=== PATIENT | female | born 1970 | race Caucasian/White ===

== ENCOUNTER 2017-02-05 00:31 | Inpatient (IN) | payer MEDICAID ==
[2017-02-05] VITALS (10 sets, daily range): BP systolic 108–147; BP diastolic 58–95; PULSE 64–89; RESP 16–20; Ht 157.5 cm; Wt 150.5 kg
[~2017-02-05] VITALS: Ht 157.5 cm; Wt 150.5 kg
[~2017-02-05 00:31] MED LIST: HYDR25TA6 PO; METO-429 PO
--- NOTE | 2017-02-05 01:00 | ERA ---
ER Documentation Chief Complaint Date/Time DATE: 02/05/17 TIME: 01:00 Chief Complaint shortness of breath x 1 day, also c/o swelling both legs HPI The patient is a 47-year-old female, presenting with acute shortness of breath today, her O2 saturation was only 87% on room air in triage. She also complains of bilateral leg edema for a week. She denies similar symptoms previously, denies chest pain, chest pain with exertion/vomiting/diaphoresis, abdominal pain, vomiting, dysuria, diarrhea, constipation She does not smoke nor drink Past medical history: Hypertension Past surgical history: None ROS All systems reviewed and are negative except as per history of present illness. Medications Home Meds Discontinued Reported Medications Hydrochlorothiazide* (Hydrochlorothiazide*) 25 Mg Tab, 25 MG PO DAILY, TAB 01/07/15 Metoprolol Tartrate* (Lopressor*) 50 Mg Tab, 50 MG PO DAILY, TAB 01/07/15 Allergies Allergies: Coded Allergies: No Known Allergy (Unverified , 02/05/17) PMhx/Soc Hx Cardiac Disorders: Yes (htn) Hx Alcohol Use: No Hx Substance Use: No Hx Tobacco Use: No Physical Exam Vitals Vital Signs Date Time Temp Pulse Resp B/P Pulse Ox O2 Delivery O2 Flow Rate FiO2 02/05/17 03:07 95 22 153/111 95 Nasal Cannula 2.0 02/05/17 01:30 97 23 150/135 94 Nasal Cannula 2.0 02/05/17 01:02 98.6 102 18 208/117 94 Nasal Cannula 02/05/17 01:00 Nasal Cannula 2.0 02/05/17 01:00 Nasal Cannula 2 02/05/17 00:35 98.7 102 20 190/127 85 Physical Exam Const: No acute distress.Obese Head: Atraumatic. Eyes: Normal Conjunctiva. ENT: Normal External Ears, Nose and Mouth. Neck: Full range of motion. No meningismus. Resp: Clear to auscultation bilaterally. Cardio: Regular rate and rhythm. Abd: Soft, non distended, normal bowel sounds, non tender. Skin: No petechiae or rashes. Back: No midline or flank tenderness. Ext: Bilateral leg edema, minimal calf tenderness Neur: Awake and alert. No focal deficit Psych: Normal Mood and Affect. Result Diagram: 02/05/17 0124 02/05/17 0124 Results 24 hrs Laboratory Tests Test 02/05/17 01:24 02/05/17 01:30 White Blood Count 10.410^3/ul Red Blood Count 4.8110^6/ul Hemoglobin 14.2g/dl Hematocrit 45.3% Mean Corpuscular Volume 94.2fl Mean Corpuscular Hemoglobin 29.5pg Mean Corpuscular Hemoglobin Concent 31.3g/dl Red Cell Distribution Width 14.2% Platelet Count 39774^3/UL Mean Platelet Volume 10.4fl Neutrophils % 63.7% Lymphocytes % 24.2% Monocytes % 6.6% Eosinophils % 4.3% Basophils % 0.7% Nucleated Red Blood Cells % 0.0/100WBC Neutrophils # 6.610^3/ul Lymphocytes # 2.510^3/ul Monocytes # 0.710^3/ul Eosinophils # 0.510^3/ul Basophils # 0.110^3/ul Nucleated Red Blood Cells # 0.010^3/ul Prothrombin Time 12.5Sec Prothrombin Time Ratio 1.0 INR International Normalized Ratio 0.93 Activated Partial Thromboplast Time 27.8Sec D-Dimer 593.30ng/ml D-Dimer Comment Sodium Level 138mmol/L Potassium Level 4.0mmol/L Chloride Level 97mmol/L Carbon Dioxide Level 36mmol/L Anion Gap 9 Blood Urea Nitrogen 20mg/dl Creatinine 0.83mg/dl Glucose Level 132mg/dl Calcium Level 8.8mg/dl Troponin I 0.047ng/ml B-Type Natriuretic Peptide 1930PG/ML Serum HCG, Qualitative NEGATIVE Blood Gas Specimen Source Blood arterial Arterial Blood Date Drawn 02/05/2017 1:45:03 AM Arterial Blood pH (Temp corrected) 7.364 Arterial Blood pCO2 (Temp correct) 62.9mmhg Arterial Blood pO2 (Temp corrected) 60.5mmHG Arterial Blood HCO3 35.1mmol/L Arterial Blood Base Excess 7.3mmol/L Arterial Blood Oxygen Saturation 90.3mmHG Jason Test ACCEPTAB Arterial Blood Gas Puncture Site Right Radial Arterial Blood Carboxyhemoglobin 0.7% Arterial Blood Methemoglobin 0.3% Blood Gas A-a O2 Differential 57.6mmHg Oxyhemoglobin Percent 89.4% Total Hemoglobin 15.0g/dl Blood Gas Temperature 37.0C Blood Gas Actual Respiration Rate 26 Blood Gas Modality NASAL CANNULA FiO2 27.0% Blood Gas Notified Whom MH Blood Gas Notified Time 02/05/2017 1:57:54 AM Current Medications Medications (Trade) Dose Ordered Sig/Lawanda Route PRN Reason Start Time Stop Time Status Last Admin Dose Admin Furosemide (Lasix) 40 mg ONCE ONCE IV 02/05/17 02:30 02/05/17 02:31 DC 02/05/17 02:40 Procedures/MDM CTA of chest is pending [place] [id number] Radiology Main Line: [phone] DIAGNOSTIC IMAGING REPORT Patient: LISA RENO : 1970 Age: 47 Sex: F MR #: [id number] DOS: 02/05/17 0100 Ordering MD: JOSUÉ LUA MD Location: E/R Room/Bed: PROCEDURE: US bilateral lower extremity venous Doppler CLINICAL INDICATION: Bilateral swelling TECHNIQUE: Multiple sonographic images of the bilateral lower extremity deep venous system was obtained utilizing grayscale, color-flow, compressive sonography and Doppler imaging with augmentation. COMPARISON: There are no similar studies submitted for comparison. FINDINGS: There is normal compressibility and flow within the left common femoral, superficial femoral, popliteal, and calf veins. There is normal compressibility and flow within the right common femoral, superficial femoral, popliteal, and calf veins. IMPRESSION: No evidence of DVT within the lower extremities. RPTAT: HIKT .Felice Raya MD, MD Date Time Electronically viewed and signed by .Felice Raya MD, MD on 02/05/2017 01:43 .T/ CC: JOSUÉ LUA MD [place] [address] Radiology Main Line: [phone] DIAGNOSTIC IMAGING REPORT Patient: LISA RENO : 1970 Age: 47 Sex: F MR #: [id number] DOS: 02/05/17 0100 Ordering MD: JOSUÉ LUA MD Location: E/R Room/Bed: PROCEDURE: XR Chest. CLINICAL INDICATION: Shortness of breath. TECHNIQUE: Single frontal chest x-ray. COMPARISON: None. FINDINGS: Heart is enlarged.. There is moderate CHF. There is no pleural effusion. There is no pneumothorax. The osseous structures are unremarkable. IMPRESSION: Cardiomegaly. CHF. RPTAT: HMVK .Josué Montana MD, MD Date Time Electronically viewed and signed by .Josué Montana MD, MD on 02/05/2017 02:04 .K/ CC: JOSUÉ LUA MD EKG: Read by emergency physician Rate/Rhythm: Normal Sinus Rhythm 94 beats/min QRS, ST, T-waves: No ST elevation, no T inversion, PVC, LAFB, LVH Impression: Abnormal EKG ABG 27%, pH 7.36, PCO2 62, PO2 60 MEDICAL MAKING DECISION: The patient is a 47-year-old female, presenting with acute respiratory failure due to acute CHF, acute accelerated hypertension. She was treated with Lasix 40 mg IV with good response The differential diagnoses considered include but are not limited to asthma, COPD, pneumonia, pulmonary embolus, pleural effusion, congestive heart failure. Critical Care: Time: 35 minutes excluding all billable procedures. Treatments/Evaluations: Close monitoring and treatment of unstable vital signs, cardiorespiratory, and neurologic status, while maintaining tight balance of fluid, respiratory, and cardiac interventions. Departure Diagnosis: Primary Impression: Acute respiratory failure Additional Impressions: CHF (congestive heart failure) Accelerated hypertension Condition: Critical Comments I discussed the findings with the patient. I discussed the patient with The on- call hospitalist Dr. Zarco at 3 AM who was made aware of the lab, the treatment, the patient condition, pending CTA of the chest. The patient is admitted to JOSUÉ Paz MD Feb 05, 2017 01:00
--- NOTE | 2017-02-05 01:43 | RADRPT ---
PROCEDURE: US bilateral lower extremity venous Doppler CLINICAL INDICATION: Bilateral swelling TECHNIQUE: Multiple sonographic images of the bilateral lower extremity deep venous system was obt ained utilizing grayscale, color-flow, compressive sonography and Doppler imaging with augmentation. COMPARISON: There are no similar studies submitted for comparison. FINDINGS: There is normal compressibility and flow within the left common femoral, superficial femoral, poplit eal, and calf veins. There is normal compressibility and flow within the right common femoral, superficial femoral, popli teal, and calf veins. IMPRESSION: No evidence of DVT within the lower extremities. RPTAT: HIKT .Felice Raya MD, MD Date Time Electronically viewed and signed by .Felice Raya MD, MD on 02/05/2017 01:43 .T/
[2017-02-05 01:58] LABS: AADO2 Arterial 57.6 mmHg (7.0-24.0); Allen Test ACCEPTAB; Arterial Base Excess 7.3 mmol/L (-3.0-3); Arterial COHb 0.7 % (0.0-3.0); Arterial Fraction of Oxyhgb 89.4 % (93.0-99.0); Arterial HCO3 35.1 mmol/L (22.0-26.0); Arterial MetHb 0.3 % (0.0-1.5); MODE NASAL CANNULA
[2017-02-05 02:04] LABS: BASOPHIL # 0.1 10^3/ul (0.0-0.1); BASOPHILS % 0.7 % (0.0-2.0); EOSINOPHILS # 0.5 10^3/ul (0.0-0.5); EOSINOPHILS % 4.3 % (0.0-7.0); HEMATOCRIT 45.3 % (37.0-47.0); HEMOGLOBIN 14.2 g/dl (12.0-16.0); LYMPHOCYTES # 2.5 10^3/ul (0.8-2.9); LYMPHOCYTES % 24.2 % (15.0-51.0); MEAN CORPUSCULAR HEMOGLOBIN 29.5 pg (29.0-33.0); MEAN CORPUSCULAR HGB CONC 31.3 g/dl (32.0-37.0); MEAN CORPUSCULAR VOLUME 94.2 fl (82.0-101.0); MEAN PLATELET VOLUME 10.4 fl (7.4-10.4); MONOCYTE # 0.7 10^3/ul (0.3-0.9); MONOCYTES % 6.6 % (0.0-11.0); NEUTROPHIL # 6.6 10^3/ul (1.6-7.5); NEUTROPHILS % 63.7 % (39.0-77.0); PLATELET COUNT 276 10^3/UL (140-415); RED BLOOD COUNT 4.81 10^6/ul (4.20-5.40); RED CELL DISTRIBUTION WIDTH 14.2 % (11.5-14.5); WHITE BLOOD COUNT 10.4 10^3/ul (4.8-10.8)
--- NOTE | 2017-02-05 02:04 | RADRPT ---
PROCEDURE: XR Chest. CLINICAL INDICATION: Shortness of breath. TECHNIQUE: Single frontal chest x-ray. COMPARISON: None. FINDINGS: Heart is enlarged.. There is moderate CHF. There is no pleural effusion. There is no pneumothorax . The osseous structures are unremarkable. IMPRESSION: Cardiomegaly. CHF. RPTAT: HMVK .Josué Montana MD, MD Date Time Electronically viewed and signed by .Josué Montana MD, on 02/05/2017 02:04 .K/
[2017-02-05 02:20] LABS: INR 0.93; PROTIME 12.5 Sec (12.2-14.2)
[2017-02-05 02:21] LABS: PARTIAL THROMBOPLASTIN TIME 27.8 Sec (25.0-35.0)
[2017-02-05 02:22] LABS: CALCIUM 8.8 mg/dl (8.4-10.2); CREATININE 0.83 mg/dl (0.44-1.00)
[2017-02-05 02:30] LABS: D-DIMER 593.3 ng/ml (<460)
[2017-02-05] MEDS ORDERED: FUROSEMIDE 40 MG INJ IV ONE (02:30)
[2017-02-05 02:34] LABS: TROPONIN-I 0.047 ng/ml (0.00-0.12)
[2017-02-05] MEDS ORDERED: SOD CHLORIDE 0.9% 100 ML ONE (03:11)
[2017-02-05] MEDS ORDERED: IOHEXOL 100 ML ONE (03:11)
--- NOTE | 2017-02-05 03:43 | RADRPT ---
PROCEDURE: CTA Chest CLINICAL INDICATION: Shortness of breath TECHNIQUE: Thin section spiral CT images were obtained through the vasculature of the chest during administration of 90 cc of Omnipaque 350 contrast material. Multiplanar reconstructions and 3-D ma ximum intensity projection reconstructed images were performed. The images were reviewed on a PACS workstation. The total exam CTDI equals 24.34 mGy, and the total exam DLP equals 964.27 mGy-cm. O ne or more of the following dose reduction techniques were used: automated exposure control, adjustm ent of the mA and/or kV according to patient size, or use of iterative reconstruction technique. COMPARISON: Chest x-ray from the same day FINDINGS: Calcified right upper lobe granuloma. Tiny calcified left upper lobe granuloma. Scattered nonspecifi c ground-glass opacities of the lung lakhani. Dependent atelectasis of the lungs is seen. No focal in filtrate or pleural effusion is seen. No pericardial effusion is seen. No hilar or mediastinal varinder opathy is seen. There is no definite evidence for pulmonary embolus or aortic dissection. Cardiome alexandrea. Small probable left adrenal adenoma. There is mild degenerative change of the spine. IMPRESSION: No evidence for pulmonary embolus or aortic dissection. No definite acute disease. . Prior granulom atous disease. RPTAT: HLBE Physician Anna Date Time Electronically viewed and signed by Physician Anna on 02/05/2017 03:43 JULIA/
[2017-02-05] MEDS ORDERED: NITROGLYCERIN (SL) 0.4 MG TAB SL PRN (04:00)
[2017-02-05] MEDS ORDERED: ONDANSETRON 4 MG INJ IV PRN (04:00)
[2017-02-05] MEDS ORDERED: NACL 0.9% 3 ML SYG IV SCH (04:00)
[2017-02-05] MEDS ORDERED: ACETAMINOPHEN 325 MG TAB PO PRN (04:00)
--- NOTE | 2017-02-05 06:34 | HP ---
Date/Time of Note Date/Time of Note DATE: 02/05/17 TIME: 06:22 Assessment/Plan VTE Prophylaxis VTE Prophylaxis Intervention: LMWH Lines/Catheters Urinary Cath still in place: No Assessment/Plan Chief Complaint/Hosp Course This is a 47-year-old female being admitted to the telemetry floor for: #1 Shortness of breath: Likely new onset CHF. there likely also is a component of obesity hypoventilation syndrome and/or obstructive sleep apnea. BNP is elevated in the 1900. CT of the chest was negative for PE and ultrasound of lower extremities was negative for DVT. At the current time we will continue Lasix 40 mg IV twice daily. Will start MARIA FERNANDA inhibitor. Will order echocardiogram to evaluate the heart morphology. Will consult cardiology. Will initiate beta-rachel once she is appropriately compensated. Will check a lipid panel. #2 hypertension: Currently patient is not on any medications, will continue monitor blood pressure. #3 morbid obesity: We will check a lipid panel, A1c, TSH #4 lower abdominal hernia: At the current time we will continue to follow this, patient likely need surgery in the future #5 DVT and GI prophylaxis: Lovenox, acid rachel Further treatment strategy will be implemented as per the clinical course Problems: HPI/ROS Admit Date/Time Admit Date/Time Feb 05, 2017 at 03:46 Hx of Present Illness Chief complaint: Shortness of breath The patient is a 47-year-old female, presenting with acute shortness of breath today, her O2 saturation was only 87% on room air in triage. She also complains of bilateral leg edema for a week. She denies similar symptoms previously, denies chest pain, chest pain with exertion/vomiting/diaphoresis, abdominal pain, vomiting, dysuria, diarrhea, constipation . Allergies: NKDA Medications: See JUL ARASH Const: As per HPI Eyes : No pain discharge or redness or change in visual acuity ENT: No pain, sore throat, congestion, congestion, dysphagia or discharge Respiratory: As per HPI Cardiovascular: As per HPI GI : no change in appetite, abdominal pain, nausea, vomiting, diarrhea, constipation, or change in the color his stool Genitourinary: No dysuria, hematuria, flank pain , discharge or CVA tenderness Musculoskeletal: No joint pain, back pain, neck pain, restricted range of motion in neck or joints Skin: No rash, bruising or hives Neuro: No headache, dizziness, syncope, seizure, focal weakness Endocrine: No polyuria, polydipsia, temperature intolerance Psych: No hallucination, depression, anxiety or suicidal ideation PMH/Family/Social Past Medical History Hypertension, lower abdominal hernia Past Surgical History Appendectomy, 1 Family History Significant Family History: no pertinent family hx Social History Alcohol Use: none Smoking Status: Never smoker Drug Use: none Exam/Review of Systems Vital Signs Vitals Vital Signs Date Time Temp Pulse Resp B/P Pulse Ox O2 Delivery O2 Flow Rate FiO2 02/05/17 04:46 83 02/05/17 04:35 97.7 19 140/86 90 02/05/17 04:30 Nasal Cannula 2.0 Exam Exam General: This is a morbidly obese female lying in bed and needing to catch her breath during conversation HEENT: Atraumatic, normocephalic. The pupils are equal, round and reactive. Extraocular motor are intact Neck: Supple with full range of motion. No rigidity or meningismus Chest: Nontender Lungs: Clear to auscultation bilaterally no crackles rales or wheezing Heart: Normal S1-S2, Regular rhythm and rate. No murmur, S3, or S4 Abdomen: Soft , nontender, nondistended , bowel sounds are present. No guarding no rebound tenderness , No masses or organomegaly. No costovertebral temporal angle mass Extremities: Normal to inspection, no edema no cyanosis Neurologic: Normal mental status, speech normal, cranial nerves II through XII are intact, motor and sensory are intact, no focal weakness Additional Comments PROCEDURE: CTA Chest CLINICAL INDICATION: Shortness of breath TECHNIQUE: Thin section spiral CT images were obtained through the vasculature of the chest during administration of 90 cc of Omnipaque 350 contrast material. Multiplanar reconstructions and 3-D maximum intensity projection reconstructed images were performed. The images were reviewed on a PACS workstation. The total exam CTDI equals 24.34 mGy, and the total exam DLP equals 964.27 mGy-cm. One or more of the following dose reduction techniques were used: automated exposure control, adjustment of the mA and/or kV according to patient size, or use of iterative reconstruction technique. COMPARISON: Chest x-ray from the same day FINDINGS: Calcified right upper lobe granuloma. Tiny calcified left upper lobe granuloma. Scattered nonspecific ground-glass opacities of the lung lakhani. Dependent atelectasis of the lungs is seen. No focal infiltrate or pleural effusion is seen. No pericardial effusion is seen. No hilar or mediastinal adenopathy is seen. There is no definite evidence for pulmonary embolus or aortic dissection. Cardiomegaly. Small probable left adrenal adenoma. There is mild degenerative change of the spine. IMPRESSION: No evidence for pulmonary embolus or aortic dissection. No definite acute disease. . Prior granulomatous disease. RPTAT: HLBE Daylin Rivera Physician Date Time Electronically viewed and signed by Daylin Rivera, Physician on 02/05/2017 03 :43 LE/ CC: JOSUÉ LUA MD PROCEDURE: XR Chest. CLINICAL INDICATION: Shortness of breath. TECHNIQUE: Single frontal chest x-ray. COMPARISON: None. FINDINGS: Heart is enlarged.. There is moderate CHF. There is no pleural effusion. There is no pneumothorax. The osseous structures are unremarkable. IMPRESSION: Cardiomegaly. CHF. RPTAT: HMVK .Josué Montana MD, Date Time Electronically viewed and signed by .Josué Montana MD, on 02/05/2017 02:04 .K/ CC: JOSUÉ LUA MD PROCEDURE: US bilateral lower extremity venous Doppler CLINICAL INDICATION: Bilateral swelling TECHNIQUE: Multiple sonographic images of the bilateral lower extremity deep venous system was obtained utilizing grayscale, color-flow, compressive sonography and Doppler imaging with augmentation. COMPARISON: There are no similar studies submitted for comparison. FINDINGS: There is normal compressibility and flow within the left common femoral, superficial femoral, popliteal, and calf veins. There is normal compressibility and flow within the right common femoral, superficial femoral, popliteal, and calf veins. IMPRESSION: No evidence of DVT within the lower extremities. RPTAT: HIKT .Felice Raya MD, MD Date Time Electronically viewed and signed by .Felice Raya MD, MD on 02/05/2017 01:43 .T/ CC: JOSUÉ LUA MD EKG: Rate/Rhythm: Normal Sinus Rhythm 94 beats/min QRS, ST, T-waves: No ST elevation, no T inversion, PVC, LAFB, LVH As per ED physician documentation Labs Result Diagram: 02/05/1712302/05/17 0124 Medications Medications Current Medications Ondansetron HCl (Zofran Inj) 4 mg Q6H PRN IV NAUSEA AND/OR VOMITING; Start at 04:00 Aspirin (Aspirin) 81 mg DAILY PO ; Start 02/05/17 at 09:00 Furosemide (Lasix) 40 mg BID IV ; Start 02/05/17 at 09:00 Nitroglycerin (Nitroglycerin (Sl Tab) 0.4 Mg) 1 tab Q5M PRN SL CHEST PAIN; Start 02/05/17 at 04:00 Acetaminophen (Tylenol Tab) 650 mg Q6H PRN PO PAIN LEVEL 1-3 OR FEVER; Start at 04:00 Famotidine (Pepcid) 20 mg Q12 PO ; Start 02/05/17 at 09:00 Enoxaparin Sodium (Lovenox) 40 mg DAILY SC ; Start 02/05/17 at 09:00 Influenza Virus Vaccine (Fluzone) 0.5 ml ONCE ONCE IM* ; Start 02/06/17 at 09:00 ; Stop 02/06/17 at 09:01 JENISE JENKINS Feb 05, 2017 06:33
[2017-02-05] MEDS ORDERED: LISINOPRIL 10 MG TAB PO ONE (07:00)
[2017-02-05 07:08] LABS: CK-MB 1.27 ng/ml (0.0-2.4); TROPONIN-I 0.042 ng/ml (0.00-0.12)
[2017-02-05 07:56] LABS: CHOL/HDL RATIO 2.6 RATIO; MAGNESIUM 1.8 mg/dl (1.7-2.5)
[2017-02-05 08:18] LABS: THYROID STIMULATING HORMONE 2.44 MIU/L (0.465-4.680)
[2017-02-05] MEDS: ASPIRIN 81 MG TAB PO SCH (08:47)
[2017-02-05] MEDS: FAMOTIDINE 20 MG TAB PO SCH ×2 (08:48→20:51)
[2017-02-05] MEDS ORDERED: FUROSEMIDE 40 MG INJ IV SCH (09:00)
[2017-02-05] MEDS: ENOXAPARIN 40 MG/0.4 ML SYG SC SCH (09:01)
[2017-02-05 11:04] LABS: CK-MB 1.2 ng/ml (0.0-2.4); TROPONIN-I 0.028 ng/ml (0.00-0.12)
--- NOTE | 2017-02-05 15:23 | PN ---
Date/Time of Note Date/Time of Note DATE: 02/05/17 TIME: 15:20 Assessment/Plan VTE Prophylaxis VTE Prophylaxis Intervention: LMWH Lines/Catheters Urinary Cath still in place: No Assessment/Plan Chief Complaint/Hosp Course 47 yo female with morbid obesity who presents with new diagnosis of CHF as well as DM and chronic hypercapneic respiratory failure Acute systolic CHF exacerbation: - Contiue lasix to euvolemia, though quite difficult to assess volume status given habiuts - Started on lisinopril and Coreg Hypertension: - Monitor with Coreg, lasix, and MARIA FERNANDA Chronicn hypercapneic respiratory failure: - Likely OHS/PRABHA - Needs pulmonary evaluation/sleep study, can be done as outpatient DMII: - basal/bolus insulin - Metformin at discharge Morbid obesity: - Very much needs to lose weight, discussed at [facility] - [facility] consult - Bariatric surgery would be excellent for her Dispo in coming days Problems: Subjective 24 Hr Interval Summary Free Text/Dictation Patient diuresing well Feeling a bit better, still with orthopnea Discussed CHF diagnosis at length Exam/Review of Systems Vital Signs Vitals Vital Signs Date Time Temp Pulse Resp B/P Pulse Ox O2 Delivery O2 Flow Rate FiO2 02/05/17 12:25 89 02/05/17 11:37 98.2 19 126/85 96 02/05/17 08:00 Nasal Cannula 2.0 Exam Morbidly obese Resting comfortably in NAD Difficult to assess JVP given neck RRR Clear lungs, nonlabored b/l pedal edema Results Result Diagram: 02/05/17 0124 02/05/17 0124 Results 24 hrs Laboratory Tests Test 02/05/17 01:24 02/05/17 01:30 02/05/17 05:52 02/05/17 05:57 White Blood Count 10.4 Red Blood Count 4.81 Hemoglobin 14.2 Hematocrit 45.3 Mean Corpuscular Volume 94.2 Mean Corpuscular Hemoglobin 29.5 Mean Corpuscular Hemoglobin Concent 31.3 L Red Cell Distribution Width 14.2 Platelet Count 276 Mean Platelet Volume 10.4 # Neutrophils % 63.7 Lymphocytes % 24.2 Monocytes % 6.6 Eosinophils % 4.3 Basophils % 0.7 Nucleated Red Blood Cells % 0.0 Neutrophils # 6.6 Lymphocytes # 2.5 Monocytes # 0.7 Eosinophils # 0.5 Basophils # 0.1 Nucleated Red Blood Cells # 0.0 Prothrombin Time 12.5 Prothrombin Time Ratio 1.0 INR International Normalized Ratio 0.93 Activated Partial Thromboplast Time 27.8 D-Dimer 593.30 H D-Dimer Comment Sodium Level 138 Potassium Level 4.0 Chloride Level 97 Carbon Dioxide Level 36 H Anion Gap 9 Blood Urea Nitrogen 20 Creatinine 0.83 Glucose Level 132 Calcium Level 8.8 Troponin I 0.047 0.042 B-Type Natriuretic Peptide 1930 H Serum HCG, Qualitative NEGATIVE Blood Gas Specimen Source Blood arterial Arterial Blood Date Drawn 02/05/2017 1:45:03 AM Arterial Blood pH (Temp corrected) 7.364 Arterial Blood pCO2 (Temp correct) 62.9 H Arterial Blood pO2 (Temp corrected) 60.5 L Arterial Blood HCO3 35.1 H Arterial Blood Base Excess 7.3 H Arterial Blood Oxygen Saturation 90.3 L Jason Test ACCEPTAB Arterial Blood Gas Puncture Site Right Radial Arterial Blood Carboxyhemoglobin 0.7 Arterial Blood Methemoglobin 0.3 Blood Gas A-a O2 Differential 57.6 H Oxyhemoglobin Percent 89.4 L Total Hemoglobin 15.0 Blood Gas Temperature 37.0 Blood Gas Actual Respiration Rate 26 Blood Gas Modality NASAL CANNULA FiO2 27.0 Blood Gas Notified Whom MH Blood Gas Notified Time 02/05/2017 1:57:54 AM Creatine Kinase 56 Creatine Kinase Index 2.3 Creatinine Kinase MB (Mass) 1.27 Hemoglobin A1c 6.9 H Magnesium Level 1.8 Triglycerides Level 69 Cholesterol Level 130 LDL Cholesterol, Calculated 66 HDL Cholesterol 50 Cholesterol/HDL Ratio 2.6 Thyroid Stimulating Hormone (TSH) 2.440 Test 02/05/17 09:39 Creatine Kinase 51 Creatine Kinase Index 2.4 Creatinine Kinase MB (Mass) 1.20 Troponin I 0.028 Medications Medications Current Medications Ondansetron HCl (Zofran Inj) 4 mg Q6H PRN IV NAUSEA AND/OR VOMITING; Start at 04:00 Aspirin (Aspirin) 81 mg DAILY PO Last administered on 02/05/17 08:47; Admin Dose 81 MG; Start 02/05/17 at 09:00 Furosemide (Lasix) 40 mg BID IV Last administered on 02/05/17 08:48; Admin Dose 40 MG; Start 02/05/17 at 09:00 Nitroglycerin (Nitroglycerin (Sl Tab) 0.4 Mg) 1 tab Q5M PRN SL CHEST PAIN; Start 02/05/17 at 04:00 Acetaminophen (Tylenol Tab) 650 mg Q6H PRN PO PAIN LEVEL 1-3 OR FEVER; Start at 04:00 Famotidine (Pepcid) 20 mg Q12 PO Last administered on 02/05/17 08:48; Admin Dose 20 MG; Start 02/05/17 at 09:00 Enoxaparin Sodium (Lovenox) 40 mg DAILY SC Last administered on 02/05/17 09:01 ; Admin Dose 40 MG; Start 02/05/17 at 09:00 Influenza Virus Vaccine (Fluzone) 0.5 ml ONCE ONCE IM* ; Start 02/06/17 at 09:00 ; Stop 02/06/17 at 09:01 Carvedilol (Coreg) 3.125 mg BID PO Last administered on 02/05/17 12:20; Admin Dose 3.125 MG; Start 02/05/17 at 10:30 MIHIR COON MD Feb 05, 2017 15:23
[2017-02-05] MEDS ORDERED: GLUCAGON 1 MG INJ IM PRN (15:30)
[2017-02-05] MEDS ORDERED: GLUCOSE GEL 15 GRAM TUBE PO PRN ×2 (15:30)
[2017-02-05] MEDS ORDERED: DEXTROSE 50% 50 ML SYRINGE IV PRN ×2 (15:30)
[2017-02-05] MEDS ORDERED: GLUCOSE GEL 15 GRAM TUBE BUCCAL PRN (15:30)
[2017-02-05] MEDS: INSULIN ASPART [NOVOLOG] 3 ML PEN SC SCH ×2 (17:55→21:00)
[2017-02-05 18:21] LABS: CALCIUM 8.2 mg/dl (8.4-10.2); CREATININE 0.95 mg/dl (0.44-1.00); POTASSIUM 3.4 mmol/L (3.5-5.1)
[2017-02-05] MEDS: FUROSEMIDE 20 MG INJ IV SCH (20:52)
[2017-02-05] MEDS: INSULIN GLARGINE [LANtus] 3 ML PEN SC SCH (20:55)
[2017-02-06] VITALS (15 sets, daily range): BP systolic 114–134; BP diastolic 57–83; PULSE 40–88; RESP 18
[2017-02-06] MEDS: ACCU-CHEK XX SCH (02:00)
[2017-02-06] MEDS: ASPIRIN 81 MG TAB PO SCH (08:23)
[2017-02-06] MEDS: FUROSEMIDE 20 MG INJ IV SCH (08:25)
[2017-02-06] MEDS: FAMOTIDINE 20 MG TAB PO SCH ×2 (08:27→20:55)
[2017-02-06 08:31] LABS: BASOPHIL # 0.1 10^3/ul (0.0-0.1); BASOPHILS % 0.8 % (0.0-2.0); EOSINOPHILS # 0.3 10^3/ul (0.0-0.5); EOSINOPHILS % 3.8 % (0.0-7.0); HEMATOCRIT 46.3 % (37.0-47.0); HEMOGLOBIN 14.5 g/dl (12.0-16.0); LYMPHOCYTES # 1.7 10^3/ul (0.8-2.9); LYMPHOCYTES % 19.5 % (15.0-51.0); MEAN CORPUSCULAR HEMOGLOBIN 29.8 pg (29.0-33.0); MEAN CORPUSCULAR HGB CONC 31.3 g/dl (32.0-37.0); MEAN CORPUSCULAR VOLUME 95.3 fl (82.0-101.0); MEAN PLATELET VOLUME 9.7 fl (7.4-10.4); MONOCYTE # 0.6 10^3/ul (0.3-0.9); MONOCYTES % 7.1 % (0.0-11.0); NEUTROPHIL # 5.9 10^3/ul (1.6-7.5); NEUTROPHILS % 68.3 % (39.0-77.0); PLATELET COUNT 259 10^3/UL (140-415); RED BLOOD COUNT 4.86 10^6/ul (4.20-5.40); RED CELL DISTRIBUTION WIDTH 14.1 % (11.5-14.5); WHITE BLOOD COUNT 8.7 10^3/ul (4.8-10.8)
[2017-02-06] MEDS: INSULIN ASPART [NOVOLOG] 3 ML PEN SC SCH ×4 (08:35→20:55)
[2017-02-06] MEDS: ENOXAPARIN 40 MG/0.4 ML SYG SC SCH (08:35)
[2017-02-06 08:44] LABS: ALBUMIN 3.8 g/dl (3.3-4.9); ALBUMIN/GLOBULIN RATIO 1.02; BILIRUBIN,INDIRECT 0.8 mg/dl (0-1.1); BILIRUBIN,TOTAL 0.8 mg/dl (0.2-1.3); CALCIUM 8.4 mg/dl (8.4-10.2); POTASSIUM 3.3 mmol/L (3.5-5.1); TOTAL PROTEIN 7.5 g/dl (6.1-8.1)
[2017-02-06] MEDS ORDERED: INFLUENZA VIRUS VACCINE 0.5 ML SYG IM* ONE (09:00)
[2017-02-06] MEDS ORDERED: POTASSIUM CHLORIDE (SR) 20 MEQ TAB PO STA (09:29)
--- NOTE | 2017-02-06 11:48 | RADRPT ---
PROCEDURE: XR Chest. CLINICAL INDICATION: Congestive heart failure. TECHNIQUE: Single frontal view. COMPARISON: 02/05/2017. FINDINGS: Mild pulmonary edema is improved. The lungs are otherwise clear. The heart is enlarged. There is no pleural effusion. There is no pneumothorax. IMPRESSION: 1. Pulmonary edema, improved. 2. Cardiomegaly. RPTAT: QQ .Gonzalez Novak MD, MD Date Time Electronically viewed and signed by .Gonzalez Novak MD, MD on 02/06/2017 11:48 .R/
--- NOTE | 2017-02-06 14:53 | PN ---
Date/Time of Note Date/Time of Note DATE: 02/06/17 TIME: 14:39 Assessment/Plan VTE Prophylaxis VTE Prophylaxis Intervention: LMWH Lines/Catheters IV Catheter Type (from Nrs): Saline Lock Urinary Cath still in place: No Assessment/Plan Chief Complaint/Hosp Course 47 yo female with morbid obesity who presents with new diagnosis of CHF as well as DM and chronic hypercapneic respiratory failure Chronic hypercapneic respiratory failure: - Likely OHS/PRABHA - Needs pulmonary evaluation/sleep study, can be done as outpatient - Hold on further lasix Acute systolic CHF exacerbation: - Need to hold off on further diuresis given worsening metabolic alkalosis/ hypercapnea - Not clear to me how much volume left given habitus but not grossly overloaded Hypertension: - Monitor with Coreg, lasix, and MARIA FERNANDA DMII: - basal/bolus insulin - Metformin at discharge Morbid obesity: - Very much needs to lose weight, discussed at [facility] - 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 - Bariatric surgery would be excellent for her Dispo in coming days Problems: Subjective 24 Hr Interval Summary Free Text/Dictation Says her breathing is back to baseline, much better than when she came That said, still hypoxic on RA to mid 80s Bicarb now > 40 Exam/Review of Systems Vital Signs Vitals Vital Signs Date Time Temp Pulse Resp B/P Pulse Ox O2 Delivery O2 Flow Rate FiO2 02/06/17 12:24 98.0 87 18 116/57 98 02/06/17 12:11 Room Air 02/05/17 20:00 2.0 Intake and Output 02/05/17 02/05/17 02/06/17 15:00 23:00 07:00 Intake Total 700 ml Output Total 1200 ml Balance -500 ml Exam Morbidly obese Slightly tacypnniec Difficult to assess JVP but not clearly distended Lungs clear RRR Trace pedal edema Results Result Diagram: 02/06/17 0648 02/06/17 0648 Results 24 hrs Laboratory Tests Test 02/05/17 16:51 02/05/17 17:15 02/05/17 20:25 02/06/17 06:48 Bedside Glucose 109 129 Sodium Level 139 142 Potassium Level 3.4 L 3.3 L Chloride Level 94 L 94 L Carbon Dioxide Level 39 H 41 *H Anion Gap 9 10 Blood Urea Nitrogen 20 21 H Creatinine 0.95 1.00 Glucose Level 112 118 Calcium Level 8.2 L 8.4 White Blood Count 8.7 Red Blood Count 4.86 Hemoglobin 14.5 Hematocrit 46.3 Mean Corpuscular Volume 95.3 Mean Corpuscular Hemoglobin 29.8 Mean Corpuscular Hemoglobin Concent 31.3 L Red Cell Distribution Width 14.1 Platelet Count 259 Mean Platelet Volume 9.7 Neutrophils % 68.3 Lymphocytes % 19.5 Monocytes % 7.1 Eosinophils % 3.8 Basophils % 0.8 Nucleated Red Blood Cells % 0.0 Neutrophils # 5.9 Lymphocytes # 1.7 Monocytes # 0.6 Eosinophils # 0.3 Basophils # 0.1 Nucleated Red Blood Cells # 0.0 Total Bilirubin 0.8 Direct Bilirubin 0.00 Indirect Bilirubin 0.8 Aspartate Amino Transf (AST/SGOT) 41 Alanine Aminotransferase (ALT/SGPT) 64 Alkaline Phosphatase 102 Total Protein 7.5 Albumin 3.8 Globulin 3.70 H Albumin/Globulin Ratio 1.02 Test 02/06/17 08:20 02/06/17 12:02 Bedside Glucose 163 92 Medications Medications Current Medications Ondansetron HCl (Zofran Inj) 4 mg Q6H PRN IV NAUSEA AND/OR VOMITING; Start at 04:00 Aspirin (Aspirin) 81 mg DAILY PO Last administered on 02/06/17 08:23; Admin Dose 81 MG; Start 02/05/17 at 09:00 Nitroglycerin (Nitroglycerin (Sl Tab) 0.4 Mg) 1 tab Q5M PRN SL CHEST PAIN; Start 02/05/17 at 04:00 Acetaminophen (Tylenol Tab) 650 mg Q6H PRN PO PAIN LEVEL 1-3 OR FEVER; Start at 04:00 Famotidine (Pepcid) 20 mg Q12 PO Last administered on 02/06/17 08:27; Admin Dose 20 MG; Start 02/05/17 at 09:00 Enoxaparin Sodium (Lovenox) 40 mg DAILY SC Last administered on 02/06/17 08:35 ; Admin Dose 40 MG; Start 02/05/17 at 09:00 Carvedilol (Coreg) 3.125 mg BID PO Last administered on 02/06/17 08:24; Admin Dose 3.125 MG; Start 02/05/17 at 10:30 Diagnostic Test (Pha) (Accu-Chek) 1 ea 02 XX ; Start 02/06/17 at 02:00 Insulin Glargine (Lantus) 10 unit QPM SC Last administered on 02/05/17t 20:55; Admin Dose 10 UNIT; Start 02/05/17 at 21:00 Miscellaneous Information 1 ea NOTE XX ; Start 02/05/17 at 15:30 Glucose (Glutose) 15 gm Q15M PRN PO DECREASED GLUCOSE; Start 02/05/17 at 15:30 Glucose (Glutose) 22.5 gm Q15M PRN PO DECREASED GLUCOSE; Start 02/05/17 at 15: 30 Dextrose (D50w Syringe) 25 ml Q15M PRN IV DECREASED GLUCOSE; Start 02/05/17 at 15:30 Dextrose (D50w Syringe) 50 ml Q15M PRN IV DECREASED GLUCOSE; Start 02/05/17 at 15:30 Glucagon (Glucagen) 1 mg Q15M PRN IM DECREASED GLUCOSE; Start 02/05/17 at 15:30 Glucose (Glutose) 15 gm Q15M PRN BUCCAL DECREASED GLUCOSE; Start 02/05/17 at 15 :30 MIHIR COON MD Feb 06, 2017 14:53
--- NOTE | 2017-02-06 14:57 | CONS ---
Date/Time of Note Date/Time of Note DATE: 02/06/17 TIME: 14:52 Assessment/Plan Assessment/Plan Additional Assessment/Plan Assesment: 1. CHF better clinically. Await Echo. There likely also is a component of obesity hypoventilation syndrome and/or obstructive sleep apnea. #2 hypertension: Controlled #3 morbid obesity: #4 S Sean as low as 40s: r/o sleep apnea #5 DVT and GI prophylaxis: Lovenox, acid rachel 6. Hypokalemia (3.3): received K already Plan: F/u BMP, BNP and CXR Consultation Date/Type/Reason Admit Date/Time Feb 05, 2017 at 03:46 Initial Consult Date 24 HR Interval Summary Free Text/Dictation ROS: No fever, no chills, no nausea, no vomiting, no diarrhea/constipation No recent weight changes No edema, no palpitations No chest pain, no PND, SOB is better No dizziness, blurred vision No thirst, no heat or cold intolerance Exam/Review of Systems Vital Signs Vitals Vital Signs Date Time Temp Pulse Resp B/P Pulse Ox O2 Delivery O2 Flow Rate FiO2 02/06/17 12:24 98.0 87 18 116/57 98 02/06/17 12:11 Room Air 02/05/17 20:00 2.0 Intake and Output 02/05/17 02/05/17 02/06/17 15:00 23:00 07:00 Intake Total 700 ml Output Total 1200 ml Balance -500 ml Exam General: Grossly obese HEENT: Unicetric/atraumatic/ no assymetry NECK: JVD not elevated, no thyromegaly, carotids revealed normal upstrokes Lymph: no lymphadenopathy HEART: regular with no S3, I/ systolic murmur at apex LUNGS: clear ABD: soft, NT, ND, +BS, no organomegaly Neuro: no deficit SKIN: no leisons EXT: no edema Results Result Diagram: 02/06/17 0648 02/06/17 0648 Results 24 hrs Laboratory Tests Test 02/05/17 16:51 02/05/17 17:15 02/05/17 20:25 02/06/17 06:48 Bedside Glucose 109 129 Sodium Level 139 142 Potassium Level 3.4 L 3.3 L Chloride Level 94 L 94 L Carbon Dioxide Level 39 H 41 *H Anion Gap 9 10 Blood Urea Nitrogen 20 21 H Creatinine 0.95 1.00 Glucose Level 112 118 Calcium Level 8.2 L 8.4 White Blood Count 8.7 Red Blood Count 4.86 Hemoglobin 14.5 Hematocrit 46.3 Mean Corpuscular Volume 95.3 Mean Corpuscular Hemoglobin 29.8 Mean Corpuscular Hemoglobin Concent 31.3 L Red Cell Distribution Width 14.1 Platelet Count 259 Mean Platelet Volume 9.7 Neutrophils % 68.3 Lymphocytes % 19.5 Monocytes % 7.1 Eosinophils % 3.8 Basophils % 0.8 Nucleated Red Blood Cells % 0.0 Neutrophils # 5.9 Lymphocytes # 1.7 Monocytes # 0.6 Eosinophils # 0.3 Basophils # 0.1 Nucleated Red Blood Cells # 0.0 Total Bilirubin 0.8 Direct Bilirubin 0.00 Indirect Bilirubin 0.8 Aspartate Amino Transf (AST/SGOT) 41 Alanine Aminotransferase (ALT/SGPT) 64 Alkaline Phosphatase 102 Total Protein 7.5 Albumin 3.8 Globulin 3.70 H Albumin/Globulin Ratio 1.02 Test 02/06/17 08:20 02/06/17 12:02 Bedside Glucose 163 92 Medications Medications Current Medications Ondansetron HCl (Zofran Inj) 4 mg Q6H PRN IV NAUSEA AND/OR VOMITING; Start at 04:00 Aspirin (Aspirin) 81 mg DAILY PO Last administered on 02/06/17 08:23; Admin Dose 81 MG; Start 02/05/17 at 09:00 Nitroglycerin (Nitroglycerin (Sl Tab) 0.4 Mg) 1 tab Q5M PRN SL CHEST PAIN; Start 02/05/17 at 04:00 Acetaminophen (Tylenol Tab) 650 mg Q6H PRN PO PAIN LEVEL 1-3 OR FEVER; Start at 04:00 Famotidine (Pepcid) 20 mg Q12 PO Last administered on 02/06/17 08:27; Admin Dose 20 MG; Start 02/05/17 at 09:00 Enoxaparin Sodium (Lovenox) 40 mg DAILY SC Last administered on 02/06/17 08:35 ; Admin Dose 40 MG; Start 02/05/17 at 09:00 Carvedilol (Coreg) 3.125 mg BID PO Last administered on 02/06/17 08:24; Admin Dose 3.125 MG; Start 02/05/17 at 10:30 Diagnostic Test (Pha) (Accu-Chek) 1 ea 02 XX ; Start 02/06/17 at 02:00 Insulin Glargine (Lantus) 10 unit QPM SC Last administered on 02/05/17t 20:55; Admin Dose 10 UNIT; Start 02/05/17 at 21:00 Miscellaneous Information 1 ea NOTE XX ; Start 02/05/17 at 15:30 Glucose (Glutose) 15 gm Q15M PRN PO DECREASED GLUCOSE; Start 02/05/17 at 15:30 Glucose (Glutose) 22.5 gm Q15M PRN PO DECREASED GLUCOSE; Start 02/05/17 at 15: 30 Dextrose (D50w Syringe) 25 ml Q15M PRN IV DECREASED GLUCOSE; Start 02/05/17 at 15:30 Dextrose (D50w Syringe) 50 ml Q15M PRN IV DECREASED GLUCOSE; Start 02/05/17 at 15:30 Glucagon (Glucagen) 1 mg Q15M PRN IM DECREASED GLUCOSE; Start 02/05/17 at 15:30 Glucose (Glutose) 15 gm Q15M PRN BUCCAL DECREASED GLUCOSE; Start 02/05/17 at 15 :30 HERBER LORENZO MD Feb 06, 2017 14:57
[2017-02-06 15:33] LABS: AADO2 Arterial 27.7 mmHg (7.0-24.0); Allen Test ACCEPTAB; Arterial Base Excess 12.6 mmol/L (-3.0-3); Arterial COHb 1.4 % (0.0-3.0); Arterial Fraction of Oxyhgb 79.6 % (93.0-99.0); Arterial HCO3 40.7 mmol/L (22.0-26.0); Arterial MetHb 0.3 % (0.0-1.5); Arterial Total Hemglobin 15.2 g/dl (12.0-18.0); MODE ROOM AIR
--- NOTE | 2017-02-06 17:12 | CONS ---
Date/Time of Note Date/Time of Note DATE: 02/06/17 TIME: 17:12 Consultation Date/Type/Reason Admit Date/Time Feb 05, 2017 at 03:46 Date of Consultation: Feb 06, 2017 Type of Consultation: pulmonary Reason for Consultation dictated [id number] Social History Alcohol Use: none Smoking Status: Never smoker Drug Use: none Exam/Review of Systems Vital Signs Vitals Vital Signs Date Time Temp Pulse Resp B/P Pulse Ox O2 Delivery O2 Flow Rate FiO2 02/06/17 16:34 80 02/06/17 16:25 98.0 18 114/73 98 02/06/17 16:22 Room Air 02/05/17 20:00 2.0 Intake and Output 02/05/17 02/05/17 02/06/17 15:00 23:00 07:00 Intake Total 700 ml Output Total 1200 ml Balance -500 ml Results Result Diagram: 02/06/17 0648 02/06/17 0648 Results 24 hrs Laboratory Tests Test 02/05/17 17:15 02/05/17 20:25 02/06/17 06:48 02/06/17 08:20 Sodium Level 139 142 Potassium Level 3.4 L 3.3 L Chloride Level 94 L 94 L Carbon Dioxide Level 39 H 41 *H Anion Gap 9 10 Blood Urea Nitrogen 20 21 H Creatinine 0.95 1.00 Glucose Level 112 118 Calcium Level 8.2 L 8.4 Bedside Glucose 129 163 White Blood Count 8.7 Red Blood Count 4.86 Hemoglobin 14.5 Hematocrit 46.3 Mean Corpuscular Volume 95.3 Mean Corpuscular Hemoglobin 29.8 Mean Corpuscular Hemoglobin Concent 31.3 L Red Cell Distribution Width 14.1 Platelet Count 259 Mean Platelet Volume 9.7 Neutrophils % 68.3 Lymphocytes % 19.5 Monocytes % 7.1 Eosinophils % 3.8 Basophils % 0.8 Nucleated Red Blood Cells % 0.0 Neutrophils # 5.9 Lymphocytes # 1.7 Monocytes # 0.6 Eosinophils # 0.3 Basophils # 0.1 Nucleated Red Blood Cells # 0.0 Total Bilirubin 0.8 Direct Bilirubin 0.00 Indirect Bilirubin 0.8 Aspartate Amino Transf (AST/SGOT) 41 Alanine Aminotransferase (ALT/SGPT) 64 Alkaline Phosphatase 102 Total Protein 7.5 Albumin 3.8 Globulin 3.70 H Albumin/Globulin Ratio 1.02 Test 02/06/17 12:02 02/06/17 12:33 02/06/17 17:04 Bedside Glucose 92 101 Blood Gas Specimen Source Blood arterial Arterial Blood Date Drawn 02/06/2017 3:15:28 PM Arterial Blood pH (Temp corrected) 7.403 Arterial Blood pCO2 (Temp correct) 66.8 H Arterial Blood pO2 (Temp corrected) 42.0 *L Arterial Blood HCO3 40.7 *H Arterial Blood Base Excess 12.6 H Arterial Blood Oxygen Saturation 81.0 L Jason Test ACCEPTAB Arterial Blood Gas Puncture Site Right Radial Arterial Blood Carboxyhemoglobin 1.4 Arterial Blood Methemoglobin 0.3 Blood Gas A-a O2 Differential 27.7 H Oxyhemoglobin Percent 79.6 L Total Hemoglobin 15.2 Blood Gas Temperature 37.0 Blood Gas Modality ROOM AIR FiO2 21.0 Blood Gas Critical Value Read Back S CARLOS RN Blood Gas Notified Whom DT Blood Gas Notified Time 02/06/2017 3:29:27 PM Medications Medications Current Medications Ondansetron HCl (Zofran Inj) 4 mg Q6H PRN IV NAUSEA AND/OR VOMITING; Start at 04:00 Aspirin (Aspirin) 81 mg DAILY PO Last administered on 02/06/17 08:23; Admin Dose 81 MG; Start 02/05/17 at 09:00 Nitroglycerin (Nitroglycerin (Sl Tab) 0.4 Mg) 1 tab Q5M PRN SL CHEST PAIN; Start 02/05/17 at 04:00 Acetaminophen (Tylenol Tab) 650 mg Q6H PRN PO PAIN LEVEL 1-3 OR FEVER; Start at 04:00 Famotidine (Pepcid) 20 mg Q12 PO Last administered on 02/06/17 08:27; Admin Dose 20 MG; Start 02/05/17 at 09:00 Enoxaparin Sodium (Lovenox) 40 mg DAILY SC Last administered on 02/06/17 08:35 ; Admin Dose 40 MG; Start 02/05/17 at 09:00 Carvedilol (Coreg) 3.125 mg BID PO Last administered on 02/06/17 08:24; Admin Dose 3.125 MG; Start 02/05/17 at 10:30 Diagnostic Test (Pha) (Accu-Chek) 1 ea 02 XX ; Start 02/06/17 at 02:00 Insulin Glargine (Lantus) 10 unit QPM SC Last administered on 02/05/17t 20:55; Admin Dose 10 UNIT; Start 02/05/17 at 21:00 Miscellaneous Information 1 ea NOTE XX ; Start 02/05/17 at 15:30 Glucose (Glutose) 15 gm Q15M PRN PO DECREASED GLUCOSE; Start 02/05/17 at 15:30 Glucose (Glutose) 22.5 gm Q15M PRN PO DECREASED GLUCOSE; Start 02/05/17 at 15: 30 Dextrose (D50w Syringe) 25 ml Q15M PRN IV DECREASED GLUCOSE; Start 02/05/17 at 15:30 Dextrose (D50w Syringe) 50 ml Q15M PRN IV DECREASED GLUCOSE; Start 02/05/17 at 15:30 Glucagon (Glucagen) 1 mg Q15M PRN IM DECREASED GLUCOSE; Start 02/05/17 at 15:30 Glucose (Glutose) 15 gm Q15M PRN BUCCAL DECREASED GLUCOSE; Start 02/05/17 at 15 :30 DANNY CARRANZA Feb 06, 2017 17:12
--- NOTE | 2017-02-06 17:52 | CONS ---
DATE OF ADMISSION: 02/05/2017 DATE OF CONSULTATION: 02/06/2017 REFERRING PHYSICIAN: Dr. Dwayne Zarco REASON FOR REFERRAL: For evaluation of shortness of breath. Ms. Byers is a very pleasant, 47-year-old lady who was admitted to the hospital yesterday when she came into the ER with a 2-day history of increasing shortness of breath. The patient, however, denies any wheezing, any cough, chest pain, sputum production. Upon evaluation, patient was diagnosed with mild CHF exacerbation as well as hypercapnic respiratory failure with hypoxemia. The patient has been put on BiPAP with marked improvement in symptoms. According to the patient, she was fine until 2 days ago when the symptoms got worse, but she does complain of chronic dyspnea on exertion. PAST MEDICAL HISTORY: Unremarkable. The patient does have a history of hypertension and diabetes. MEDICATIONS: Currently patient is on: 1. Coreg 3.125 mg b.i.d. 2. Aspirin 81 mg a day. 3. Acetaminophen on a p.r.n. basis. 4. The patient has received influenza vaccine. 5. Lantus insulin 10 units daily. ALLERGIES: NONE. SOCIAL HISTORY: Never smoked. No history of alcohol or drug abuse. FAMILY HISTORY: Patient is single. She has 1 child. 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 REVIEW OF SYSTEMS: Denies any headache, any visual changes, sinus symptoms, postnasal drip, dysphagia, odynophagia, chest pain, angina, wheezing, cough, sputum production, hemoptysis. Shortness of breath has improved. Complains of chronic orthopnea, excessive daytime sleepiness, loud snoring. Denies any edema, any weight change, any GI or urinary symptoms, any skin changes, any new arthritis symptoms. PHYSICAL EXAMINATION: GENERAL APPEARANCE: Young woman, morbidly obese, currently in no distress. VITAL SIGNS: Temperature 98 degrees Fahrenheit; respiratory rate is 18/min; pulse 87/min; blood pressure 114/74; O2 saturation 98 percent. Patient currently on BiPAP 12/5, 30 percent FiO2. Backup rate of 12. HEENT: Supple neck. JVP difficult to see because of short neck. No thyromegaly. No neck bruits. Midline trachea. No thyromegaly. The patient has fair dentition. Pupils are midsize, reactive to light. CHEST: Diminished but clear breath sounds. S1, S2 audible. No murmurs. Regular rhythm. ABDOMEN: Protuberant and nontender. Bowel sounds audible. EXTREMITIES: No peripheral edema. Pulses 1+ bilaterally. No clubbing. NEUROLOGIC: No focal deficits. LABORATORY: ABG from today from 12:36 p.m. on room air: pH 7.40, CO2 of 66, PO2 of 42, O2 saturation 88 percent. Sodium 142, potassium 3.3, chloride 94, bicarb 41, glucose 118, BUN 21, creatinine 1.0. White count 8.7, hemoglobin 14.5, platelet count of 259,000. ASSESSMENT: 1. The patient admitted for hypercapnic respiratory failure with hypoxemia due to obesity, hypoventilation syndrome with likely underlying sleep apnea. 2. Chest x-ray essentially unremarkable. 3. History of hypertension, diabetes. 4. Morbid obesity. RECOMMENDATIONS: Continue current treatment. Continue BiPAP. Patient will need to have BiPAP at home to use nocturnally, and she qualifies for that based upon respiratory failure history. The patient also would benefit from a sleep study. Dictated By: Baljit Barriga MD /[email or web address] /Document#: [id number]
[2017-02-06] MEDS: INSULIN GLARGINE [LANtus] 3 ML PEN SC SCH (21:12)
[2017-02-07] VITALS (16 sets, daily range): BP systolic 99–134; BP diastolic 56–85; PULSE 59–120; RESP 18–22
[2017-02-07] MEDS: ACCU-CHEK XX SCH (01:18)
--- NOTE | 2017-02-07 07:18 | CONS ---
DATE OF ADMISSION: 02/05/2017 DATE OF CONSULTATION: 02/05/[address] Zarco: Thank you very much for asking me to evaluate Ms. Byers. HISTORY OF PRESENT ILLNESS: Ms. Byers is a 47-year-old female who was admitted to the emergency room with a diagnosis of CHF. Patient came to the emergency room because of complaints of shortness of breath acutely, and then patient's saturation was 87 percent. Patient apparently has been having bilateral leg edema for the last one week or so. Denied any chest pain, dizziness or palpitation. SOCIAL HISTORY: She does not smoke or drink or use any drugs. ALLERGIES: NO KNOWN ALLERGIES. MEDICATIONS: Please see EMR. FAMILY HISTORY: Negative for any sudden cardiac disease. REVIEW OF SYSTEMS: Otherwise unremarkable. PAST MEDICAL HISTORY: Significant for a history of hypertension, and apparently she stopped her medications. PHYSICAL EXAMINATION: GENERAL: She is conscious, alert, oriented, appears to be in no acute distress. VITAL SIGNS: Blood pressure is 126/85, heart rate 78, respiratory rate 19. She is afebrile. GENERAL: She is grossly obese. HEENT: Normocephalic. No xanthelasma and no . NECK: JVP is not raised and carotid pulses were normal upstrokes. CHEST: Reveals bilateral asymmetry chest, and the PMI is not very well localized. HEART: S1, S2 are regular, and a 1/6 systolic murmur is noted at the apex. No gallop, rub or thrill appreciated. LUNGS: Reveals clear lung lakhani to percussion and auscultation, although patient is breathing shallow. ABDOMEN: Reveals soft, nontender belly with gross obesity. Bowel sounds present. No organomegaly appreciated. No abdominal . No abdominal bruits are heard, although it is heard to feel the aorta and any organomegaly in this grossly obese patient. EXTREMITIES: Reveals left femoral pulses could not be heard because of her gross pannus and she has absent pedal pulses and she has trace leg edema. No clubbing, no cyanosis. LABORATORY DATA: White count is 10.4, hemoglobin 14.2, platelet count 276,000, and the chemistries reveal bicarb is elevated at 36, otherwise BUN and creatinine are 20 and 0.83, respectively. Troponin is normal x3. The BNP is elevated to 1930. EKG shows sinus rhythm with occasional PVCs and left ventricular fascicular block. Telemetry shows sinus rhythm with occasional PVCs or couplets. IMPRESSION: Ms. Byers is a 47-year-old female with past medical history of hypertension who is admitted now because of her complaints of shortness of breath. In view of this history and physical findings, the diagnosis at this stage includes: 1. Shortness of breath which may be because of congestive heart failure as seen by chest x-ray, although the lungs appear rather clear and it is possible that her congestive heart failure is cleared or it is possible also that it is hard to hear the lung rales with the gross obesity and will get a follow up chest x-ray and other possible causes of shortness of breath could be anxiety and/or obesity. 2. Occasional premature ventricular contractions, soft systolic murmur. 3. History of hypertension, which was uncontrolled in the emergency room but is better controlled right now. RECOMMENDATIONS: 1. Will get a follow up chest x-ray in the morning. Will also get serial enzymes and EKG to rule out the possibility of acute myocardial infarction. 2. Will also get an echo Doppler study to assess the left ventricular function to assess the valvular status. 3. Will continue with carvedilol, aspirin, Lasix, and Lovenox that you have already started. Will make further recommendations depending on patient progress in the hospital, and depending on the results of investigation. Prognosis at this stage is fair. Thank you once again, Dr. Zarco, for this kind referral. It is a pleasure working with you. Dictated By: Hiro Lin MD /[email or web address] /Document#: [id number]
[2017-02-07 07:39] LABS: CALCIUM 8.5 mg/dl (8.4-10.2); CREATININE 1.01 mg/dl (0.44-1.00); POTASSIUM 3.8 mmol/L (3.5-5.1)
[2017-02-07] MEDS: INSULIN ASPART [NOVOLOG] 3 ML PEN SC SCH ×4 (07:55→21:00)
[2017-02-07] MEDS: FAMOTIDINE 20 MG TAB PO SCH ×2 (07:57→21:29)
[2017-02-07] MEDS: ASPIRIN 81 MG TAB PO SCH (07:57)
[2017-02-07] MEDS: ENOXAPARIN 40 MG/0.4 ML SYG SC SCH (08:01)
--- NOTE | 2017-02-07 08:39 | RADRPT ---
Vent Rate: 76 bpm RR Interval: 0 msec RI Interval: 138 msec QRS Duration: 92 msec QT Interval: 400 msec QTC Interval: 450 msec P-R-T [place]: 64 - -24 - 94 degrees Normal sinus rhythm Minimal voltage criteria for LVH, may be normal variant Nonspecific T wave abnormality Abnormal ECG Electronically Signed By: Bruce García [id number]
--- NOTE | 2017-02-07 08:59 | RADRPT ---
PROCEDURE: XR Chest. CLINICAL INDICATION: Shortness of breath. Congestive heart failure. TECHNIQUE: Single portable view of the chest was obtained. COMPARISON: 02/06/2017 and 02/05/2017 FINDINGS: Stable borderline enlarged cardiomediastinal silhouette. Similar bilateral perihilar and basilar int erstitial opacities. Possible small left pleural effusion. No evidence of pneumothorax. IMPRESSION: Borderline cardiomegaly with bilateral interstitial opacities representing pulmonary edema or infect ion. RPTAT:AAJJ Jose Fuentes Physician Date Time Electronically viewed and signed by Jose Fuentes Physician on 02/07/2017 08:59 /
--- NOTE | 2017-02-07 11:10 | CONS ---
Date/Time of Note Date/Time of Note DATE: 02/07/17 TIME: 11:09 Assessment/Plan Assessment/Plan Additional Assessment/Plan Assessment and recommendations; 1. Patient admitted with hypercapnic respiratory due to underlying morbid obesity with likely severe sleep apnea as well as obesity/hypoventilation syndrome. 2. History of hypertension or diabetes. Continue current treatment. Patient will need to have a polysomnogram done on an outpatient basis. However because of hypercapnia she also qualifies for BiPAP. Consultation Date/Type/Reason Admit Date/Time Feb 05, 2017 at 03:46 Initial Consult Date 02/06/17 Type of Consultation: pulmonary 24 HR Interval Summary Free Text/Dictation Patient's condition is improved. Complains of decreased shortness of breath. Denies any cough, chest pain, wheezing or sputum production. General exam; middle-aged woman, morbidly obese, awake and alert. Currently in no distress. Doing well on 2 L nasal cannula. Exam/Review of Systems Vital Signs Vitals Vital Signs Date Time Temp Pulse Resp B/P Pulse Ox O2 Delivery O2 Flow Rate FiO2 02/07/17 08:15 99.2 66 20 134/78 91 02/07/17 07:50 3.0 02/07/17 01:35 40 02/06/17 16:22 Room Air Intake and Output 02/06/17 02/06/17 02/07/17 15:00 23:00 07:00 Intake Total 1200 ml 500 ml Balance 1200 ml 500 ml Exam HEENT exam; supple neck, JVD difficult to see because of short neck. No thyromegaly. No neck bruits. Pharynx is clear. Patient has fair dentition. Chest exam; diminished but clear breath sounds. S1-S2 audible, no murmurs. Regular rhythm. Abdomen exam; soft, no organomegaly. Bowel sounds audible. Protuberant. Nontender. Extremity exam; no edema. Pulses 1+ bilaterally. CUSTODIAL MANAGER exam; no focal deficit. Results Result Diagram: 02/06/17 0648 02/07/17 0635 Results 24 hrs Laboratory Tests Test 02/06/17 12:02 02/06/17 12:33 02/06/17 17:04 02/06/17 20:52 Bedside Glucose 92 101 110 Blood Gas Specimen Source Blood arterial Arterial Blood Date Drawn 02/06/2017 3:15:28 PM Arterial Blood pH (Temp corrected) 7.403 Arterial Blood pCO2 (Temp correct) 66.8 H Arterial Blood pO2 (Temp corrected) 42.0 *L Arterial Blood HCO3 40.7 *H Arterial Blood Base Excess 12.6 H Arterial Blood Oxygen Saturation 81.0 L Jason Test ACCEPTAB Arterial Blood Gas Puncture Site Right Radial Arterial Blood Carboxyhemoglobin 1.4 Arterial Blood Methemoglobin 0.3 Blood Gas A-a O2 Differential 27.7 H Oxyhemoglobin Percent 79.6 L Total Hemoglobin 15.2 Blood Gas Temperature 37.0 Blood Gas Modality ROOM AIR FiO2 21.0 Blood Gas Critical Value Read Back S CARLOS RN Blood Gas Notified Whom DT Blood Gas Notified Time 02/06/2017 3:29:27 PM Test 02/07/17 06:35 02/07/17 07:50 Sodium Level 140 Potassium Level 3.8 Chloride Level 94 L Carbon Dioxide Level 42 *H Anion Gap 8 Blood Urea Nitrogen 22 H Creatinine 1.01 H Glucose Level 129 Calcium Level 8.5 B-Type Natriuretic Peptide 259 H Bedside Glucose 114 Medications Medications Current Medications Ondansetron HCl (Zofran Inj) 4 mg Q6H PRN IV NAUSEA AND/OR VOMITING; Start at 04:00 Aspirin (Aspirin) 81 mg DAILY PO Last administered on 02/07/17 07:57; Admin Dose 81 MG; Start 02/05/17 at 09:00 Nitroglycerin (Nitroglycerin (Sl Tab) 0.4 Mg) 1 tab Q5M PRN SL CHEST PAIN; Start 02/05/17 at 04:00 Acetaminophen (Tylenol Tab) 650 mg Q6H PRN PO PAIN LEVEL 1-3 OR FEVER Last administered on 02/07/17 06:09; Admin Dose 650 MG; Start 02/05/17 at 04:00 Famotidine (Pepcid) 20 mg Q12 PO Last administered on 02/07/17 07:57; Admin Dose 20 MG; Start 02/05/17 at 09:00 Enoxaparin Sodium (Lovenox) 40 mg DAILY SC Last administered on 02/07/17 08:01 ; Admin Dose 40 MG; Start 02/05/17 at 09:00 Carvedilol (Coreg) 3.125 mg BID PO Last administered on 02/07/17 07:58; Admin Dose 3.125 MG; Start 02/05/17 at 10:30 Diagnostic Test (Pha) (Accu-Chek) 1 ea 02 XX ; Start 02/06/17 at 02:00 Insulin Glargine (Lantus) 10 unit QPM SC Last administered on 02/06/17t 21:12; Admin Dose 10 UNIT; Start 02/05/17 at 21:00 Miscellaneous Information 1 ea NOTE XX ; Start 02/05/17 at 15:30 Glucose (Glutose) 15 gm Q15M PRN PO DECREASED GLUCOSE; Start 02/05/17 at 15:30 Glucose (Glutose) 22.5 gm Q15M PRN PO DECREASED GLUCOSE; Start 02/05/17 at 15: 30 Dextrose (D50w Syringe) 25 ml Q15M PRN IV DECREASED GLUCOSE; Start 02/05/17 at 15:30 Dextrose (D50w Syringe) 50 ml Q15M PRN IV DECREASED GLUCOSE; Start 02/05/17 at 15:30 Glucagon (Glucagen) 1 mg Q15M PRN IM DECREASED GLUCOSE; Start 02/05/17 at 15:30 Glucose (Glutose) 15 gm Q15M PRN BUCCAL DECREASED GLUCOSE; Start 02/05/17 at 15 :30 DANNY CARRANZA Feb 07, 2017 11:10
--- NOTE | 2017-02-07 12:40 | CONS ---
Date/Time of Note Date/Time of Note DATE: 02/07/17 TIME: 12:27 Assessment/Plan Assessment/Plan Chief Complaint/Hosp Course IMP: 1.PVC-occasional 2.CHF-? systolic versus diastolic 3.HTN 4.DM 5.abdominal hernia-anterior 6. Hypercapneic resp failure-improving Recc: -Tele -serial ecg's -await echo -Continue asa -Change coreg to B1 selective bb -Follow volume status closely with lasix held due to increasing BUN/sugar mixer ratio Problems: Consultation Date/Type/Reason Admit Date/Time Feb 05, 2017 at 03:46 Initial Consult Date 02/06/17 Type of Consultation: cardiology Reason for Consultation PVC Referring Provider: JENISE JENKINS Exam/Review of Systems Vital Signs Vitals Vital Signs Date Time Temp Pulse Resp B/P Pulse Ox O2 Delivery O2 Flow Rate FiO2 02/07/17 11:13 98.6 74 18 125/69 92 02/07/17 07:50 3.0 02/07/17 01:35 40 02/06/17 16:22 Room Air Intake and Output 02/06/17 02/06/17 02/07/17 15:00 23:00 07:00 Intake Total 1200 ml 500 ml Balance 1200 ml 500 ml Exam Review of Systems: CONSTITUTIONAL: No fevers, chills. PULMONARY: No sob CARDIOVASCULAR: No chest pain/palpitations GASTROINTESTINAL: No nausea/vomiting. GENITOURINARY: No hematuria/dysuria. MUSCULOSKELETAL: No myagias/arthalgias. PSYCHIATRIC: The patient denies depression. NEUROLOGIC: No weakness Constitutional: alert Psych: no complaints Head: normocephalic ENMT: mucosa pink and moist Neck: jvd (9 cm water), supple Respiratory: diminished breath sounds Cardiovascular: regular rate and rhythm Gastrointestinal: non-tender, other (abdominal hernia), soft Musculoskeletal: muscle tone (normal) Extremities: other (RLE covered by cast) Neurological: other (No focal deficits) Results Result Diagram: 02/06/17 0648 02/07/17 0635 Results 24 hrs Laboratory Tests Test 02/06/17 12:33 02/06/17 17:04 02/06/17 20:52 02/07/17 06:35 Blood Gas Specimen Source Blood arterial Arterial Blood Date Drawn 02/06/2017 3:15:28 PM Arterial Blood pH (Temp corrected) 7.403 Arterial Blood pCO2 (Temp correct) 66.8 H Arterial Blood pO2 (Temp corrected) 42.0 *L Arterial Blood HCO3 40.7 *H Arterial Blood Base Excess 12.6 H Arterial Blood Oxygen Saturation 81.0 L Jason Test ACCEPTAB Arterial Blood Gas Puncture Site Right Radial Arterial Blood Carboxyhemoglobin 1.4 Arterial Blood Methemoglobin 0.3 Blood Gas A-a O2 Differential 27.7 H Oxyhemoglobin Percent 79.6 L Total Hemoglobin 15.2 Blood Gas Temperature 37.0 Blood Gas Modality ROOM AIR FiO2 21.0 Blood Gas Critical Value Read Back Dennis GONZALEZ RN Blood Gas Notified Whom DT Blood Gas Notified Time 02/06/2017 3:29:27 PM Bedside Glucose 101 110 Sodium Level 140 Potassium Level 3.8 Chloride Level 94 L Carbon Dioxide Level 42 *H Anion Gap 8 Blood Urea Nitrogen 22 H Creatinine 1.01 H Glucose Level 129 Calcium Level 8.5 B-Type Natriuretic Peptide 259 H Test 02/07/17 07:50 02/07/17 12:00 Bedside Glucose 114 118 Medications Medications Current Medications Ondansetron HCl (Zofran Inj) 4 mg Q6H PRN IV NAUSEA AND/OR VOMITING; Start at 04:00 Aspirin (Aspirin) 81 mg DAILY PO Last administered on 02/07/17 07:57; Admin Dose 81 MG; Start 02/05/17 at 09:00 Nitroglycerin (Nitroglycerin (Sl Tab) 0.4 Mg) 1 tab Q5M PRN SL CHEST PAIN; Start 02/05/17 at 04:00 Acetaminophen (Tylenol Tab) 650 mg Q6H PRN PO PAIN LEVEL 1-3 OR FEVER Last administered on 02/07/17 06:09; Admin Dose 650 MG; Start 02/05/17 at 04:00 Famotidine (Pepcid) 20 mg Q12 PO Last administered on 02/07/17 07:57; Admin Dose 20 MG; Start 02/05/17 at 09:00 Enoxaparin Sodium (Lovenox) 40 mg DAILY SC Last administered on 02/07/17 08:01 ; Admin Dose 40 MG; Start 02/05/17 at 09:00 Carvedilol (Coreg) 3.125 mg BID PO Last administered on 02/07/17 07:58; Admin Dose 3.125 MG; Start 02/05/17 at 10:30 Diagnostic Test (Pha) (Accu-Chek) 1 ea 02 XX ; Start 02/06/17 at 02:00 Insulin Glargine (Lantus) 10 unit QPM SC Last administered on 02/06/17t 21:12; Admin Dose 10 UNIT; Start 02/05/17 at 21:00 Miscellaneous Information 1 ea NOTE XX ; Start 02/05/17 at 15:30 Glucose (Glutose) 15 gm Q15M PRN PO DECREASED GLUCOSE; Start 02/05/17 at 15:30 Glucose (Glutose) 22.5 gm Q15M PRN PO DECREASED GLUCOSE; Start 02/05/17 at 15: 30 Dextrose (D50w Syringe) 25 ml Q15M PRN IV DECREASED GLUCOSE; Start 02/05/17 at 15:30 Dextrose (D50w Syringe) 50 ml Q15M PRN IV DECREASED GLUCOSE; Start 02/05/17 at 15:30 Glucagon (Glucagen) 1 mg Q15M PRN IM DECREASED GLUCOSE; Start 02/05/17 at 15:30 Glucose (Glutose) 15 gm Q15M PRN BUCCAL DECREASED GLUCOSE; Start 02/05/17 at 15 :30 TONA SUAREZ Feb 07, 2017 12:37
--- NOTE | 2017-02-07 13:10 | RADRPT ---
Echocardiogram Report Patient Name: LISA RENO Gender: Female Date: 1970 Study Date: 05-Feb-2017 Senior Radiation Protection Technician: Angelica [facility] Location: [id number] Ref. Physician: JENISE JENKINS Quality: Technically Difficult Study Procedures: Transthoracic echocardiogram with complete 2D, M-Mode, and doppler examination. Indications: Congestive Heart Failure. 2D/M Mode Doppler Measurement Value Normal Ranges Measurement Value Normal Ranges LVIDd 2D 5.0 3.5 - 5.6 cm AV Peak Rashad 1.6 m/sec LVIDs 2D 3.6 2.1 - 4.1 cm AV Peak PG 10.0 mmHg FS 2D 27.6 % LVOT Peak Rashad 0.8 m/sec LVPWd 2D 1.5 0.6 - 1.1 cm LVOT Peak PG 2.0 mmHg IVSd 2D 1.5 0.6 - 1.1 cm MV E Peak Rashad 1.1 m/sec IVS/LVPW 2D 1.0 MV A Peak Rashad 0.7 m/sec AoR Diam 2D 2.6 2.0 - 3.7 cm MV E/A 1.5 LA/Ao 2D 1 0 - 1 MV Decel Time 190 msec EDV 2D 127.0 cm3 MV E/A 1.5 ESV 2D 48.2 cm3 TR Peak Rashad 2.8 m/sec LA Dimen 2D 3.5 2.3 - 4.0 cm TR Peak PG 32.0 mmHg RVSP 35.0 mmHg Findings Left Ventricle: Normal left ventricular cavity size. Moderate concentric left ventricular hypertrophy. Mild global left ventricular systolic dysfunction. Ejection fraction is visually estimated at 40 %. Tissue Doppler/Mitral Doppler indices are within normal limits. Right Ventricle: Normal right ventricular size. Normal right ventricular systolic function. Left Atrium: The left atrium is normal in size. Right Atrium: The right atrium is normal in size. Mitral Valve: Mild mitral leaflet calcification. Mild mitral annular calcification. Trace mitral regurgitation. Aortic Valve: Normal appearance of the aortic valve. No significant aortic stenosis or insufficiency. Tricuspid Valve: Normal appearance of the tricuspid valve. Estimated peak PA systolic pressure 35 mmHg. There is mild tricuspid regurgitation. Pericardium: Normal pericardium with no significant pericardial effusion. Aorta: Normal aortic root. IVC: Normal size and normal respiratory collapse consistent with normal right atrial pressure. Conclusions 1.Normal left ventricular cavity size. Moderate concentric left ventricular hypertrophy. Ejection fraction is estimated at 40 % compatible with mild to moderate systolic dysfunction. Tissue Doppler/Mitral Doppler indices are within normal limits. 2.Mild mitral annular calcification. 3.Estimated peak PA systolic pressure 35 mmHg consistent with borderline to mild pulmonary hypertension. Electronically Signed By: Dorcas Yang 07-Feb-2017 13:09:18 -0700 Patient Name: LISA RENO Study Date: 05-Feb-2017 [id number]
--- NOTE | 2017-02-07 15:55 | PN ---
Date/Time of Note Date/Time of Note DATE: 02/07/17 TIME: 15:47 Assessment/Plan VTE Prophylaxis VTE Prophylaxis Intervention: LMWH Lines/Catheters IV Catheter Type (from Nrs): Saline Lock Urinary Cath still in place: No Assessment/Plan Chief Complaint/Hosp Course 1. Acute hypoxic and hypercapnic respiratory failure secondary to obesity with OHS/PRABHA as well as newly diagnosed systolic heart failure with decompensation -Based on ABG on arrival patient has chronic hypercapnic respiratory failure with metabolic compensation -Echo shows an EF of 40%, etiology is likely secondary to her obesity and chronic obstructive sleep apnea -Continue diuresis as patient continues to require O2 -Pulmonology following, needs pulmonary evaluation/sleep study, can be done as outpatient 2. Acute systolic CHF exacerbation-EF is 40% -Chest x-ray still shows pulmonary edema, resume Lasix -Metabolic alkalosis is secondary to hypercapnia 3. Hypertension: Stable -Continue with Coreg, lasix, and MARIA FERNANDA 4. DMII: A1c at 6.9 - basal/bolus insulin - Metformin at discharge 5. Morbid obesity: -Lifestyle changes advised - Marketing Teacher consult - Bariatric surgery would be appropriate Prophylaxis: Lovenox Discharge planning: Patient continues to require home O2, case assembler trying to arrange for full [facility], if patient off O2 tomorrow will consider discharge Problems: Subjective 24 Hr Interval Summary Constitutional: no complaints Exam/Review of Systems Vital Signs Vitals Vital Signs Date Time Temp Pulse Resp B/P Pulse Ox O2 Delivery O2 Flow Rate FiO2 02/07/17 12:00 63 02/07/17 11:13 98.6 18 125/69 92 02/07/17 07:50 3.0 02/07/17 01:35 40 02/06/17 16:22 Room Air Intake and Output 02/06/17 02/06/17 02/07/17 15:00 23:00 07:00 Intake Total 1200 ml 500 ml Balance 1200 ml 500 ml Exam Constitutional: alert, oriented Respiratory: clear to auscultation Cardiovascular: regular rate and rhythm Gastrointestinal: soft, No distended Musculoskeletal: nl extremities to inspection Results Result Diagram: 02/06/17 0648 02/07/17 0635 Results 24 hrs Laboratory Tests Test 02/06/17 17:04 02/06/17 20:52 02/07/17 06:35 02/07/17 07:50 Bedside Glucose 101 110 114 Sodium Level 140 Potassium Level 3.8 Chloride Level 94 L Carbon Dioxide Level 42 *H Anion Gap 8 Blood Urea Nitrogen 22 H Creatinine 1.01 H Glucose Level 129 Calcium Level 8.5 B-Type Natriuretic Peptide 259 H Test 02/07/17 12:00 Bedside Glucose 118 Medications Medications Current Medications Ondansetron HCl (Zofran Inj) 4 mg Q6H PRN IV NAUSEA AND/OR VOMITING; Start at 04:00 Aspirin (Aspirin) 81 mg DAILY PO Last administered on 02/07/17 07:57; Admin Dose 81 MG; Start 02/05/17 at 09:00 Nitroglycerin (Nitroglycerin (Sl Tab) 0.4 Mg) 1 tab Q5M PRN SL CHEST PAIN; Start 02/05/17 at 04:00 Acetaminophen (Tylenol Tab) 650 mg Q6H PRN PO PAIN LEVEL 1-3 OR FEVER Last administered on 02/07/17 06:09; Admin Dose 650 MG; Start 02/05/17 at 04:00 Famotidine (Pepcid) 20 mg Q12 PO Last administered on 02/07/17 07:57; Admin Dose 20 MG; Start 02/05/17 at 09:00 Enoxaparin Sodium (Lovenox) 40 mg DAILY SC Last administered on 02/07/17 08:01 ; Admin Dose 40 MG; Start 02/05/17 at 09:00 Diagnostic Test (Pha) (Accu-Chek) 1 ea 02 XX ; Start 02/06/17 at 02:00 Insulin Glargine (Lantus) 10 unit QPM SC Last administered on 02/06/17 21:12; Admin Dose 10 UNIT; Start 02/05/17 at 21:00 Miscellaneous Information 1 ea NOTE XX ; Start 02/05/17 at 15:30 Glucose (Glutose) 15 gm Q15M PRN PO DECREASED GLUCOSE; Start 02/05/17 at 15:30 Glucose (Glutose) 22.5 gm Q15M PRN PO DECREASED GLUCOSE; Start 02/05/17 at 15: 30 Dextrose (D50w Syringe) 25 ml Q15M PRN IV DECREASED GLUCOSE; Start 02/05/17 at 15:30 Dextrose (D50w Syringe) 50 ml Q15M PRN IV DECREASED GLUCOSE; Start 02/05/17 at 15:30 Glucagon (Glucagen) 1 mg Q15M PRN IM DECREASED GLUCOSE; Start 02/05/17 at 15:30 Glucose (Glutose) 15 gm Q15M PRN BUCCAL DECREASED GLUCOSE; Start 02/05/17 at 15 :30 Metoprolol Tartrate (Lopressor) 25 mg BID PO ; Start 02/07/17 at 21:00 MARYANN OLIVER Feb 07, 2017 15:55
[2017-02-07] MEDS: FUROSEMIDE 40 MG INJ IV SCH (17:10)
[2017-02-07] MEDS: METOPROLOL 25 MG TAB PO SCH (21:30)
[2017-02-07] MEDS: INSULIN GLARGINE [LANtus] 3 ML PEN SC SCH (21:44)
[2017-02-08] VITALS (13 sets, daily range): BP systolic 109–148; BP diastolic 64–87; PULSE 56–80; RESP 18–20
[2017-02-08] MEDS: ACCU-CHEK XX SCH (02:00)
[2017-02-08] MEDS: FUROSEMIDE 40 MG INJ IV SCH ×2 (06:27→17:43)
[2017-02-08 07:30] LABS: BASOPHIL # 0.1 10^3/ul (0.0-0.1); BASOPHILS % 0.7 % (0.0-2.0); EOSINOPHILS # 0.4 10^3/ul (0.0-0.5); EOSINOPHILS % 4.2 % (0.0-7.0); HEMATOCRIT 46.3 % (37.0-47.0); HEMOGLOBIN 13.9 g/dl (12.0-16.0); LYMPHOCYTES # 1.9 10^3/ul (0.8-2.9); LYMPHOCYTES % 21.5 % (15.0-51.0); MEAN CORPUSCULAR HEMOGLOBIN 28.5 pg (29.0-33.0); MEAN CORPUSCULAR VOLUME 95.1 fl (82.0-101.0); MEAN PLATELET VOLUME 9.8 fl (7.4-10.4); MONOCYTE # 0.7 10^3/ul (0.3-0.9); NEUTROPHIL # 5.6 10^3/ul (1.6-7.5); NEUTROPHILS % 65.1 % (39.0-77.0); PLATELET COUNT 254 10^3/UL (140-415); RED BLOOD COUNT 4.87 10^6/ul (4.20-5.40); RED CELL DISTRIBUTION WIDTH 14.1 % (11.5-14.5); WHITE BLOOD COUNT 8.6 10^3/ul (4.8-10.8)
[2017-02-08] MEDS: INSULIN ASPART [NOVOLOG] 3 ML PEN SC SCH ×4 (07:55→20:28)
[2017-02-08 08:18] LABS: CREATININE 0.95 mg/dl (0.44-1.00); PHOSPHORUS 4.4 mg/dl (2.5-4.9); POTASSIUM 3.6 mmol/L (3.5-5.1)
[2017-02-08] MEDS: FAMOTIDINE 20 MG TAB PO SCH ×2 (08:42→20:27)
[2017-02-08] MEDS: ASPIRIN 81 MG TAB PO SCH (08:42)
[2017-02-08] MEDS: METOPROLOL 25 MG TAB PO SCH ×2 (08:43→20:26)
[2017-02-08] MEDS: ENOXAPARIN 40 MG/0.4 ML SYG SC SCH (08:44)
--- NOTE | 2017-02-08 08:57 | CONS ---
Date/Time of Note Date/Time of Note DATE: 02/08/17 TIME: 08:55 Assessment/Plan Assessment/Plan Additional Assessment/Plan 1.PVC-occasional - no sustained ectopy on tele 2.CHF-? systolic versus diastolic - will await ECHO results once available 3.HTN - BP in good range, will monitor clinically 4.DM - on meds, keep euglycemic 5.abdominal hernia-anterior - surgical team follows 6. Hypercapneic resp failure-improving - supportive Rx now Consultation Date/Type/Reason Admit Date/Time Feb 05, 2017 at 03:46 Initial Consult Date 02/06/17 Type of Consultation: cardiology Referring Provider: JENISE JENKINS 24 HR Interval Summary Free Text/Dictation NO acute events - con't to keep euvolemic - no sustained ectopy on tele ROS: No fever, no chills, no nausea, no vomiting, no diarrhea/constipation No recent weight changes No chest pain, no PND, no orthopnea + SOB No dizziness, blurred vision No thirst, no heat or cold intolerance Exam/Review of Systems Vital Signs Vitals Vital Signs Date Time Temp Pulse Resp B/P Pulse Ox O2 Delivery O2 Flow Rate FiO2 02/08/17 07:20 98.3 56 18 111/69 91 02/08/17 06:02 3.0 02/08/17 03:56 40 02/06/17 16:22 Room Air Intake and Output 02/07/17 02/07/17 02/08/17 15:00 23:00 07:00 Intake Total 1200 ml 300 ml Output Total 800 ml 1150 ml Balance 400 ml -850 ml Exam General: WN/WD/NAD, AOx 2-3 HEENT: Unicetric/atraumatic/EOMI (follow commands) NECK: JVD elevated, no thyromegaly Lymph: no lymphadenopathy HEART: regular with no S3, II/ systolic murmur at apex LUNGS: Coarse sounds ABD: soft, NT, ND, +BS : Intact Neuro: non focal SKIN: chronic changes EXT: edema Results Result Diagram: 02/08/17 0550 02/08/17 0550 Results 24 hrs Laboratory Tests Test 02/07/17 12:00 02/07/17 17:04 02/07/17 21:28 02/08/17 05:50 Bedside Glucose 118 120 110 White Blood Count 8.6 Red Blood Count 4.87 Hemoglobin 13.9 Hematocrit 46.3 Mean Corpuscular Volume 95.1 Mean Corpuscular Hemoglobin 28.5 L Mean Corpuscular Hemoglobin Concent 30.0 L Red Cell Distribution Width 14.1 Platelet Count 254 Mean Platelet Volume 9.8 Neutrophils % 65.1 Lymphocytes % 21.5 Monocytes % 8.0 Eosinophils % 4.2 Basophils % 0.7 Nucleated Red Blood Cells % 0.0 Neutrophils # 5.6 Lymphocytes # 1.9 Monocytes # 0.7 Eosinophils # 0.4 Basophils # 0.1 Nucleated Red Blood Cells # 0.0 Sodium Level 139 Potassium Level 3.6 Chloride Level 93 L Carbon Dioxide Level 40 H Anion Gap 10 Blood Urea Nitrogen 22 H Creatinine 0.95 Glucose Level 106 Calcium Level 9.0 Phosphorus Level 4.4 Magnesium Level 2.0 Test 02/08/17 08:17 Bedside Glucose 113 Medications Medications Current Medications Ondansetron HCl (Zofran Inj) 4 mg Q6H PRN IV NAUSEA AND/OR VOMITING; Start at 04:00 Aspirin (Aspirin) 81 mg DAILY PO Last administered on 02/08/17 08:42; Admin Dose 81 MG; Start 02/05/17 at 09:00 Nitroglycerin (Nitroglycerin (Sl Tab) 0.4 Mg) 1 tab Q5M PRN SL CHEST PAIN; Start 02/05/17 at 04:00 Acetaminophen (Tylenol Tab) 650 mg Q6H PRN PO PAIN LEVEL 1-3 OR FEVER Last administered on 02/07/17 06:09; Admin Dose 650 MG; Start 02/05/17 at 04:00 Famotidine (Pepcid) 20 mg Q12 PO Last administered on 02/08/17 08:42; Admin Dose 20 MG; Start 02/05/17 at 09:00 Enoxaparin Sodium (Lovenox) 40 mg DAILY SC Last administered on 02/08/17 08:44 ; Admin Dose 40 MG; Start 02/05/17 at 09:00 Diagnostic Test (Pha) (Accu-Chek) 1 ea 02 XX ; Start 02/06/17 at 02:00 Insulin Glargine (Lantus) 10 unit QPM SC Last administered on 02/07/17 21:44; Admin Dose 10 UNIT; Start 9/23/17 at 21:00 Miscellaneous Information 1 ea NOTE XX ; Start 02/05/17 at 15:30 Glucose (Glutose) 15 gm Q15M PRN PO DECREASED GLUCOSE; Start 02/05/17 at 15:30 Glucose (Glutose) 22.5 gm Q15M PRN PO DECREASED GLUCOSE; Start 02/05/17 at 15: 30 Dextrose (D50w Syringe) 25 ml Q15M PRN IV DECREASED GLUCOSE; Start 02/05/17 at 15:30 Dextrose (D50w Syringe) 50 ml Q15M PRN IV DECREASED GLUCOSE; Start 02/05/17 at 15:30 Glucagon (Glucagen) 1 mg Q15M PRN IM DECREASED GLUCOSE; Start 02/05/17 at 15:30 Glucose (Glutose) 15 gm Q15M PRN BUCCAL DECREASED GLUCOSE; Start 02/05/17 at 15 :30 Metoprolol Tartrate (Lopressor) 25 mg BID PO Last administered on 02/08/17t 08: 43; Admin Dose 25 MG; Start 02/07/17 at 21:00 IVÁN SAMSON MD Feb 08, 2017 08:57
--- NOTE | 2017-02-08 11:05 | CONS ---
Date/Time of Note Date/Time of Note DATE: 02/08/17 TIME: 11:02 Consult Date/Type/Reason Admit Date/Time Feb 05, 2017 at 03:46 Initial Consult Date 02/06/17 Type of Consultation: Pulm Ordering Provider: JENISE JENKINS Subjective Sitting up in bed, comfortable. Objective Vital Signs Date Time Temp Pulse Resp B/P Pulse Ox O2 Delivery O2 Flow Rate FiO2 02/08/17 10:44 Nasal Cannula 3.0 02/08/17 08:00 57 02/08/17 07:20 98.3 18 111/69 91 02/08/17 03:56 40 Intake and Output 02/07/17 02/07/17 02/08/17 15:00 23:00 07:00 Intake Total 1200 ml 300 ml Output Total 800 ml 1150 ml Balance 400 ml -850 ml Exam GENERAL: Obese young lady VITAL SIGNS: per chart NECK: Supple. No JVD or lymphadenopathy. CARDIAC EXAM: S1, S2. No added sounds or murmurs. CHEST: Diminished air entry both lung lakhani ABDOMEN: Soft, nontender. No guarding or rebound. EXTREMITIES: No cyanosis, clubbing or edema. NEUROLOGIC: Generalized weakness. No focal deficits. Results/Medications Result Diagram: 02/08/17 0550 02/08/17 0550 Results 24 hrs Laboratory Tests Test 02/07/17 12:00 02/07/17 17:04 02/07/17 21:28 02/08/17 05:50 Bedside Glucose 118 120 110 White Blood Count 8.6 Red Blood Count 4.87 Hemoglobin 13.9 Hematocrit 46.3 Mean Corpuscular Volume 95.1 Mean Corpuscular Hemoglobin 28.5 L Mean Corpuscular Hemoglobin Concent 30.0 L Red Cell Distribution Width 14.1 Platelet Count 254 Mean Platelet Volume 9.8 Neutrophils % 65.1 Lymphocytes % 21.5 Monocytes % 8.0 Eosinophils % 4.2 Basophils % 0.7 Nucleated Red Blood Cells % 0.0 Neutrophils # 5.6 Lymphocytes # 1.9 Monocytes # 0.7 Eosinophils # 0.4 Basophils # 0.1 Nucleated Red Blood Cells # 0.0 Sodium Level 139 Potassium Level 3.6 Chloride Level 93 L Carbon Dioxide Level 40 H Anion Gap 10 Blood Urea Nitrogen 22 H Creatinine 0.95 Glucose Level 106 Calcium Level 9.0 Phosphorus Level 4.4 Magnesium Level 2.0 Test 02/08/17 08:17 Bedside Glucose 113 Medications Current Medications Ondansetron HCl (Zofran Inj) 4 mg Q6H PRN IV NAUSEA AND/OR VOMITING; Start at 04:00 Aspirin (Aspirin) 81 mg DAILY PO Last administered on 02/08/17 08:42; Admin Dose 81 MG; Start 02/05/17 at 09:00 Nitroglycerin (Nitroglycerin (Sl Tab) 0.4 Mg) 1 tab Q5M PRN SL CHEST PAIN; Start 02/05/17 at 04:00 Acetaminophen (Tylenol Tab) 650 mg Q6H PRN PO PAIN LEVEL 1-3 OR FEVER Last administered on 02/07/17 06:09; Admin Dose 650 MG; Start 02/05/17 at 04:00 Famotidine (Pepcid) 20 mg Q12 PO Last administered on 02/08/17 08:42; Admin Dose 20 MG; Start 02/05/17 at 09:00 Enoxaparin Sodium (Lovenox) 40 mg DAILY SC Last administered on 02/08/17 08:44 ; Admin Dose 40 MG; Start 02/05/17 at 09:00 Diagnostic Test (Pha) (Accu-Chek) 1 ea 02 XX ; Start 02/06/17 at 02:00 Insulin Glargine (Lantus) 10 unit QPM SC Last administered on 02/07/17 21:44; Admin Dose 10 UNIT; Start 02/05/17 at 21:00 Miscellaneous Information 1 ea NOTE XX ; Start 02/05/17 at 15:30 Glucose (Glutose) 15 gm Q15M PRN PO DECREASED GLUCOSE; Start 02/05/17 at 15:30 Glucose (Glutose) 22.5 gm Q15M PRN PO DECREASED GLUCOSE; Start 02/05/17 at 15: 30 Dextrose (D50w Syringe) 25 ml Q15M PRN IV DECREASED GLUCOSE; Start 02/05/17 at 15:30 Dextrose (D50w Syringe) 50 ml Q15M PRN IV DECREASED GLUCOSE; Start 02/05/17 at 15:30 Glucagon (Glucagen) 1 mg Q15M PRN IM DECREASED GLUCOSE; Start 02/05/17 at 15:30 Glucose (Glutose) 15 gm Q15M PRN BUCCAL DECREASED GLUCOSE; Start 02/05/17 at 15 :30 Metoprolol Tartrate (Lopressor) 25 mg BID PO Last administered on 02/08/17t 08: 43; Admin Dose 25 MG; Start 02/07/17 at 21:00 Assessment/Plan Chief Complaint/Hosp Course A/p 1. PRABHA with likely obesity hypoventilation syndrome 2. No evidence of fibrosis or PE. Recs 1. Home o2 2 L continuous 2. Outpatient sleep study and PFT 3. Encourage wt loss. dc ok with me. Problems: BOBBY LOUISE MD, [facility] Feb 08, 2017 11:05
--- NOTE | 2017-02-08 16:03 | PN ---
Date/Time of Note Date/Time of Note DATE: 02/08/17 TIME: 15:55 Assessment/Plan VTE Prophylaxis VTE Prophylaxis Intervention: LMWH Lines/Catheters IV Catheter Type (from Nrs): Saline Lock Urinary Cath still in place: No Assessment/Plan Chief Complaint/Hosp Course 1. Acute hypoxic and hypercapnic respiratory failure secondary to obesity with OHS/PRABHA as well as newly diagnosed systolic heart failure with decompensation- patient continues to desaturate off of supplemental O2 -Based on ABG on arrival patient has chronic hypercapnic respiratory failure with metabolic compensation -Echo shows an EF of 40%, etiology is likely secondary to her obesity and chronic obstructive sleep apnea -Continue diuresis as patient continues to require O2 -Pulmonology following, needs pulmonary evaluation/sleep study, can be done as outpatient -Patient does qualify for home O2 and will require it, outpatient case manager to arrange 2. Acute systolic CHF exacerbation-EF is 40% -Continue Lasix -Metabolic alkalosis is secondary to compensation from hypercapnia 3. Hypertension: Stable -Continue with Coreg, lasix, and MARIA FERNANDA 4. DMII: A1c at 6.9 - basal/bolus insulin - Metformin at discharge 5. Morbid obesity: -Lifestyle changes advised - Shrimp Trawler Captain consult - Bariatric surgery would be appropriate Prophylaxis: Lovenox Discharge planning: Patient continues to require O2, outpatient case manager to arrange home O2 Problems: Subjective 24 Hr Interval Summary Respiratory: shortness of breath Exam/Review of Systems Vital Signs Vitals Vital Signs Date Time Temp Pulse Resp B/P Pulse Ox O2 Delivery O2 Flow Rate FiO2 02/08/17 15:03 97.8 72 18 148/87 95 02/08/17 10:44 Nasal Cannula 3.0 02/08/17 03:56 40 Intake and Output 02/07/17 02/07/17 02/08/17 15:00 23:00 07:00 Intake Total 1200 ml 300 ml Output Total 800 ml 1150 ml Balance 400 ml -850 ml Exam Constitutional: alert, oriented Respiratory: clear to auscultation Cardiovascular: regular rate and rhythm Gastrointestinal: soft, No distended Musculoskeletal: nl extremities to inspection Results Result Diagram: 02/08/17 0550 02/08/17 0550 Results 24 hrs Laboratory Tests Test 02/07/17 17:04 02/07/17 21:28 02/08/17 05:50 02/08/17 08:17 Bedside Glucose 120 110 113 White Blood Count 8.6 Red Blood Count 4.87 Hemoglobin 13.9 Hematocrit 46.3 Mean Corpuscular Volume 95.1 Mean Corpuscular Hemoglobin 28.5 L Mean Corpuscular Hemoglobin Concent 30.0 L Red Cell Distribution Width 14.1 Platelet Count 254 Mean Platelet Volume 9.8 Neutrophils % 65.1 Lymphocytes % 21.5 Monocytes % 8.0 Eosinophils % 4.2 Basophils % 0.7 Nucleated Red Blood Cells % 0.0 Neutrophils # 5.6 Lymphocytes # 1.9 Monocytes # 0.7 Eosinophils # 0.4 Basophils # 0.1 Nucleated Red Blood Cells # 0.0 Sodium Level 139 Potassium Level 3.6 Chloride Level 93 L Carbon Dioxide Level 40 H Anion Gap 10 Blood Urea Nitrogen 22 H Creatinine 0.95 Glucose Level 106 Calcium Level 9.0 Phosphorus Level 4.4 Magnesium Level 2.0 Test 02/08/17 11:46 Bedside Glucose 121 Medications Medications Current Medications Ondansetron HCl (Zofran Inj) 4 mg Q6H PRN IV NAUSEA AND/OR VOMITING; Start at 04:00 Aspirin (Aspirin) 81 mg DAILY PO Last administered on 02/08/17 08:42; Admin Dose 81 MG; Start 02/05/17 at 09:00 Nitroglycerin (Nitroglycerin (Sl Tab) 0.4 Mg) 1 tab Q5M PRN SL CHEST PAIN; Start 02/05/17 at 04:00 Acetaminophen (Tylenol Tab) 650 mg Q6H PRN PO PAIN LEVEL 1-3 OR FEVER Last administered on 02/07/17 06:09; Admin Dose 650 MG; Start 02/05/17 at 04:00 Famotidine (Pepcid) 20 mg Q12 PO Last administered on 02/08/17 08:42; Admin Dose 20 MG; Start 02/05/17 at 09:00 Enoxaparin Sodium (Lovenox) 40 mg DAILY SC Last administered on 02/08/17 08:44 ; Admin Dose 40 MG; Start 02/05/17 at 09:00 Diagnostic Test (Pha) (Accu-Chek) 1 ea 02 XX ; Start 02/06/17 at 02:00 Insulin Glargine (Lantus) 10 unit QPM SC Last administered on 02/07/17 21:44; Admin Dose 10 UNIT; Start 02/05/17 at 21:00 Miscellaneous Information 1 ea NOTE XX ; Start 02/05/17 at 15:30 Glucose (Glutose) 15 gm Q15M PRN PO DECREASED GLUCOSE; Start 02/05/17 at 15:30 Glucose (Glutose) 22.5 gm Q15M PRN PO DECREASED GLUCOSE; Start 02/05/17 at 15: 30 Dextrose (D50w Syringe) 25 ml Q15M PRN IV DECREASED GLUCOSE; Start 02/05/17 at 15:30 Dextrose (D50w Syringe) 50 ml Q15M PRN IV DECREASED GLUCOSE; Start 02/05/17 at 15:30 Glucagon (Glucagen) 1 mg Q15M PRN IM DECREASED GLUCOSE; Start 02/05/17 at 15:30 Glucose (Glutose) 15 gm Q15M PRN BUCCAL DECREASED GLUCOSE; Start 02/05/17 at 15 :30 Metoprolol Tartrate (Lopressor) 25 mg BID PO Last administered on 02/08/17t 08: 43; Admin Dose 25 MG; Start 02/07/17 at 21:00 MARYANN OLIVER Feb 08, 2017 16:03
[2017-02-08] MEDS: INSULIN GLARGINE [LANtus] 3 ML PEN SC SCH (20:30)
[2017-02-09 01:35] VITALS: PULSE 46
[2017-02-09 02:00] VITALS: BP 157/73; RESP 18
[2017-02-09] MEDS: ACCU-CHEK XX SCH (02:00)
[2017-02-09 03:00] VITALS: PULSE 49
[2017-02-09] MEDS: FUROSEMIDE 40 MG INJ IV SCH ×2 (05:51→17:14)
[2017-02-09 06:19] LABS: BASOPHIL # 0.1 10^3/ul (0.0-0.1); BASOPHILS % 0.7 % (0.0-2.0); EOSINOPHILS # 0.4 10^3/ul (0.0-0.5); EOSINOPHILS % 4.1 % (0.0-7.0); HEMATOCRIT 47.5 % (37.0-47.0); HEMOGLOBIN 14.6 g/dl (12.0-16.0); LYMPHOCYTES # 2.5 10^3/ul (0.8-2.9); LYMPHOCYTES % 25.5 % (15.0-51.0); MEAN CORPUSCULAR HEMOGLOBIN 28.4 pg (29.0-33.0); MEAN CORPUSCULAR HGB CONC 30.7 g/dl (32.0-37.0); MEAN CORPUSCULAR VOLUME 92.4 fl (82.0-101.0); MEAN PLATELET VOLUME 9.7 fl (7.4-10.4); MONOCYTE # 0.8 10^3/ul (0.3-0.9); MONOCYTES % 8.5 % (0.0-11.0); NEUTROPHIL # 5.9 10^3/ul (1.6-7.5); NEUTROPHILS % 60.9 % (39.0-77.0); PLATELET COUNT 270 10^3/UL (140-415); RED BLOOD COUNT 5.14 10^6/ul (4.20-5.40); WHITE BLOOD COUNT 9.7 10^3/ul (4.8-10.8)
[2017-02-09 06:56] LABS: CALCIUM 9.3 mg/dl (8.4-10.2); CREATININE 1.09 mg/dl (0.44-1.00); PHOSPHORUS 4.2 mg/dl (2.5-4.9); POTASSIUM 3.5 mmol/L (3.5-5.1)
[2017-02-09 08:00] VITALS: BP 121/80; RESP 20
[2017-02-09] MEDS: INSULIN ASPART [NOVOLOG] 3 ML PEN SC SCH ×4 (08:00→21:00)
[2017-02-09] MEDS: FAMOTIDINE 20 MG TAB PO SCH ×2 (09:10→21:39)
[2017-02-09] MEDS: ASPIRIN 81 MG TAB PO SCH (09:10)
[2017-02-09] MEDS: METOPROLOL 25 MG TAB PO SCH ×2 (09:10→21:39)
[2017-02-09] MEDS: ENOXAPARIN 40 MG/0.4 ML SYG SC SCH (09:11)
--- NOTE | 2017-02-09 10:06 | CONS ---
Date/Time of Note Date/Time of Note DATE: 02/09/17 TIME: 10:05 Assessment/Plan Assessment/Plan Additional Assessment/Plan 1.PVC-occasional - no sustained ectopy - OFF TELE NOw, denies palpitations 2.CHF-? systolic versus diastolic - will await ECHO results once available 3.HTN - BP in good range, will monitor clinically 4.DM - on meds, keep euglycemic 5.abdominal hernia-anterior - surgical team follows 6. Hypercapneic resp failure-improving - supportive Rx now Consultation Date/Type/Reason Admit Date/Time Feb 05, 2017 at 03:46 Initial Consult Date 02/06/17 Type of Consultation: Pulm Referring Provider: JENISE JENKINS 24 HR Interval Summary Free Text/Dictation OFF TELE NOw, denies palpitations ROS: No fever, no chills, no nausea, no vomiting, no diarrhea/constipation No recent weight changes No chest pain, no PND, no orthopnea + SOB chronic No dizziness, blurred vision No thirst, no heat or cold intolerance Exam/Review of Systems Vital Signs Vitals Vital Signs Date Time Temp Pulse Resp B/P Pulse Ox O2 Delivery O2 Flow Rate FiO2 02/09/17 08:17 3.0 02/09/17 08:00 98.8 76 20 121/80 96 02/09/17 03:00 40 02/08/17 20:30 Nasal Cannula Intake and Output 02/08/17 02/08/17 02/09/17 15:00 23:00 07:00 Intake Total 250 ml 150 ml Balance 250 ml 150 ml Exam General: WN/WD/NAD, AOx 3 HEENT: Unicetric/atraumatic/EOMI (follow commands) NECK: JVD elevated, no thyromegaly Lymph: no lymphadenopathy HEART: regular with no S3, II/ systolic murmur at apex LUNGS: Coarse sounds ABD: soft, NT, ND, +BS : Intact Neuro: non focal SKIN: chronic changes EXT: trace edema Results Result Diagram: 02/09/17 0542 02/09/17 0542 Results 24 hrs Laboratory Tests Test 02/08/17 11:46 02/08/17 18:08 02/08/17 20:26 02/09/17 05:42 Bedside Glucose 121 107 179 White Blood Count 9.7 Red Blood Count 5.14 Hemoglobin 14.6 Hematocrit 47.5 H Mean Corpuscular Volume 92.4 Mean Corpuscular Hemoglobin 28.4 L Mean Corpuscular Hemoglobin Concent 30.7 L Red Cell Distribution Width 14.0 Platelet Count 270 Mean Platelet Volume 9.7 Neutrophils % 60.9 Lymphocytes % 25.5 Monocytes % 8.5 Eosinophils % 4.1 Basophils % 0.7 Nucleated Red Blood Cells % 0.0 Neutrophils # 5.9 Lymphocytes # 2.5 Monocytes # 0.8 Eosinophils # 0.4 Basophils # 0.1 Nucleated Red Blood Cells # 0.0 Sodium Level 140 Potassium Level 3.5 Chloride Level 91 L Carbon Dioxide Level 46 *H Anion Gap 7 L Blood Urea Nitrogen 25 H Creatinine 1.09 H Glucose Level 107 Calcium Level 9.3 Phosphorus Level 4.2 Magnesium Level 2.0 Test 02/09/17 08:01 Bedside Glucose 104 Medications Medications Current Medications Ondansetron HCl (Zofran Inj) 4 mg Q6H PRN IV NAUSEA AND/OR VOMITING; Start at 04:00 Aspirin (Aspirin) 81 mg DAILY PO Last administered on 02/09/17 09:10; Admin Dose 81 MG; Start 02/05/17 at 09:00 Nitroglycerin (Nitroglycerin (Sl Tab) 0.4 Mg) 1 tab Q5M PRN SL CHEST PAIN; Start 02/05/17 at 04:00 Acetaminophen (Tylenol Tab) 650 mg Q6H PRN PO PAIN LEVEL 1-3 OR FEVER Last administered on 02/07/17 06:09; Admin Dose 650 MG; Start 02/05/17 at 04:00 Famotidine (Pepcid) 20 mg Q12 PO Last administered on 02/09/17 09:10; Admin Dose 20 MG; Start 02/05/17 at 09:00 Enoxaparin Sodium (Lovenox) 40 mg DAILY SC Last administered on 02/09/17 09:11 ; Admin Dose 40 MG; Start 02/05/17 at 09:00 Diagnostic Test (Pha) (Accu-Chek) 1 ea 02 XX ; Start 02/06/17 at 02:00 Insulin Glargine (Lantus) 10 unit QPM SC Last administered on 02/08/17 20:30; Admin Dose 10 UNIT; Start 02/05/17 at 21:00 Miscellaneous Information 1 ea NOTE XX ; Start 02/05/17 at 15:30 Glucose (Glutose) 15 gm Q15M PRN PO DECREASED GLUCOSE; Start 02/05/17 at 15:30 Glucose (Glutose) 22.5 gm Q15M PRN PO DECREASED GLUCOSE; Start 02/05/17 at 15: 30 Dextrose (D50w Syringe) 25 ml Q15M PRN IV DECREASED GLUCOSE; Start 02/05/17 at 15:30 Dextrose (D50w Syringe) 50 ml Q15M PRN IV DECREASED GLUCOSE; Start 02/05/17 at 15:30 Glucagon (Glucagen) 1 mg Q15M PRN IM DECREASED GLUCOSE; Start 02/05/17 at 15:30 Glucose (Glutose) 15 gm Q15M PRN BUCCAL DECREASED GLUCOSE; Start 02/05/17 at 15 :30 Metoprolol Tartrate (Lopressor) 25 mg BID PO Last administered on 02/09/17t 09: 10; Admin Dose 25 MG; Start 02/07/17 at 21:00 IVÁN SAMSON MD Feb 09, 2017 10:05
--- NOTE | 2017-02-09 11:17 | CONS ---
Date/Time of Note Date/Time of Note DATE: 02/09/17 TIME: 11:16 Consult Date/Type/Reason Admit Date/Time Feb 05, 2017 at 03:46 Initial Consult Date 02/06/17 Type of Consultation: Pulm Ordering Provider: JENISE JENKINS Subjective Patient comfortable this morning. No new events. Anticipating discharge with home oxygen. Objective Vital Signs Date Time Temp Pulse Resp B/P Pulse Ox O2 Delivery O2 Flow Rate FiO2 02/09/17 08:17 3.0 02/09/17 08:00 98.8 76 20 121/80 96 02/09/17 03:00 40 02/08/17 20:30 Nasal Cannula Intake and Output 02/08/17 02/08/17 02/09/17 15:00 23:00 07:00 Intake Total 250 ml 150 ml Balance 250 ml 150 ml Exam GENERAL: Obese young lady VITAL SIGNS: per chart NECK: Supple. No JVD or lymphadenopathy. CARDIAC EXAM: S1, S2. No added sounds or murmurs. CHEST: Diminished air entry both lung lakhani ABDOMEN: Soft, nontender. No guarding or rebound. EXTREMITIES: No cyanosis, clubbing or edema. NEUROLOGIC: Generalized weakness. No focal deficits. Results/Medications Result Diagram: 02/09/17 0542 02/09/17 0542 Results 24 hrs Laboratory Tests Test 02/08/17 11:46 02/08/17 18:08 02/08/17 20:26 02/09/17 05:42 Bedside Glucose 121 107 179 White Blood Count 9.7 Red Blood Count 5.14 Hemoglobin 14.6 Hematocrit 47.5 H Mean Corpuscular Volume 92.4 Mean Corpuscular Hemoglobin 28.4 L Mean Corpuscular Hemoglobin Concent 30.7 L Red Cell Distribution Width 14.0 Platelet Count 270 Mean Platelet Volume 9.7 Neutrophils % 60.9 Lymphocytes % 25.5 Monocytes % 8.5 Eosinophils % 4.1 Basophils % 0.7 Nucleated Red Blood Cells % 0.0 Neutrophils # 5.9 Lymphocytes # 2.5 Monocytes # 0.8 Eosinophils # 0.4 Basophils # 0.1 Nucleated Red Blood Cells # 0.0 Sodium Level 140 Potassium Level 3.5 Chloride Level 91 L Carbon Dioxide Level 46 *H Anion Gap 7 L Blood Urea Nitrogen 25 H Creatinine 1.09 H Glucose Level 107 Calcium Level 9.3 Phosphorus Level 4.2 Magnesium Level 2.0 Test 02/09/17 08:01 Bedside Glucose 104 Medications Current Medications Ondansetron HCl (Zofran Inj) 4 mg Q6H PRN IV NAUSEA AND/OR VOMITING; Start at 04:00 Aspirin (Aspirin) 81 mg DAILY PO Last administered on 02/09/17 09:10; Admin Dose 81 MG; Start 02/05/17 at 09:00 Nitroglycerin (Nitroglycerin (Sl Tab) 0.4 Mg) 1 tab Q5M PRN SL CHEST PAIN; Start 02/05/17 at 04:00 Acetaminophen (Tylenol Tab) 650 mg Q6H PRN PO PAIN LEVEL 1-3 OR FEVER Last administered on 02/07/17 06:09; Admin Dose 650 MG; Start 02/05/17 at 04:00 Famotidine (Pepcid) 20 mg Q12 PO Last administered on 02/09/17 09:10; Admin Dose 20 MG; Start 02/05/17 at 09:00 Enoxaparin Sodium (Lovenox) 40 mg DAILY SC Last administered on 02/09/17 09:11 ; Admin Dose 40 MG; Start 02/05/17 at 09:00 Diagnostic Test (Pha) (Accu-Chek) 1 ea 02 XX ; Start 02/06/17 at 02:00 Insulin Glargine (Lantus) 10 unit QPM SC Last administered on 02/08/17 20:30; Admin Dose 10 UNIT; Start 02/05/17 at 21:00 Miscellaneous Information 1 ea NOTE XX ; Start 02/05/17 at 15:30 Glucose (Glutose) 15 gm Q15M PRN PO DECREASED GLUCOSE; Start 02/05/17 at 15:30 Glucose (Glutose) 22.5 gm Q15M PRN PO DECREASED GLUCOSE; Start 02/05/17 at 15: 30 Dextrose (D50w Syringe) 25 ml Q15M PRN IV DECREASED GLUCOSE; Start 02/05/17 at 15:30 Dextrose (D50w Syringe) 50 ml Q15M PRN IV DECREASED GLUCOSE; Start 02/05/17 at 15:30 Glucagon (Glucagen) 1 mg Q15M PRN IM DECREASED GLUCOSE; Start 02/05/17 at 15:30 Glucose (Glutose) 15 gm Q15M PRN BUCCAL DECREASED GLUCOSE; Start 02/05/17 at 15 :30 Metoprolol Tartrate (Lopressor) 25 mg BID PO Last administered on 02/09/17t 09: 10; Admin Dose 25 MG; Start 02/07/17 at 21:00 Assessment/Plan Chief Complaint/Hosp Course A/p 1. PRABHA with likely obesity hypoventilation syndrome 2. No evidence of fibrosis or PE. Recs 1. Home o2 2 L continuous 2. Outpatient sleep study and PFT 3. Encourage wt loss. DC home today. Problems: BOBBY LOUISE MD, [facility] Feb 09, 2017 11:17
[2017-02-09 14:00] VITALS: BP 113/71; RESP 20
--- NOTE | 2017-02-09 16:28 | PN ---
Date/Time of Note Date/Time of Note DATE: 02/09/17 TIME: 16:27 Assessment/Plan VTE Prophylaxis VTE Prophylaxis Intervention: LMWH Lines/Catheters IV Catheter Type (from Nrs): Saline Lock Urinary Cath still in place: No Assessment/Plan Chief Complaint/Hosp Course 1. Acute hypoxic and hypercapnic respiratory failure secondary to obesity with OHS/PRABHA as well as newly diagnosed systolic heart failure with decompensation- patient continues to desaturate off of supplemental O2 -Based on ABG on arrival patient has chronic hypercapnic respiratory failure with metabolic compensation -Echo shows an EF of 40%, etiology is likely secondary to her obesity and chronic obstructive sleep apnea -Continue diuresis as patient continues to require O2 -Pulmonology following, needs pulmonary evaluation/sleep study, can be done as outpatient -Patient does qualify for home O2 and will require it, director case to arrange -CXR in AM 2. Acute systolic CHF exacerbation-EF is 40% -Continue Lasix -Metabolic alkalosis is secondary to compensation from hypercapnia 3. Hypertension: Stable -Continue with Coreg, lasix, and MARIA FERNANDA 4. DMII: A1c at 6.9 - basal/bolus insulin - Metformin at discharge 5. Morbid obesity: -Lifestyle changes advised - Stamper Blocker consult - Bariatric surgery would be appropriate Prophylaxis: Lovenox Discharge planning: Patient continues to require O2, director case to arrange home O2 Problems: Subjective 24 Hr Interval Summary Constitutional: no complaints Exam/Review of Systems Vital Signs Vitals Vital Signs Date Time Temp Pulse Resp B/P Pulse Ox O2 Delivery O2 Flow Rate FiO2 02/09/17 14:00 98.6 69 20 113/71 96 02/09/17 11:30 Nasal Cannula 3.0 02/09/17 03:00 40 Intake and Output 02/08/17 02/08/17 02/09/17 15:00 23:00 07:00 Intake Total 250 ml 150 ml Balance 250 ml 150 ml Exam Constitutional: alert, oriented Respiratory: clear to auscultation Cardiovascular: regular rate and rhythm Gastrointestinal: soft, No distended Musculoskeletal: nl extremities to inspection Results Result Diagram: 02/09/17 0542 02/09/17 0542 Results 24 hrs Laboratory Tests Test 02/08/17 18:08 02/08/17 20:26 02/09/17 05:42 02/09/17 08:01 Bedside Glucose 107 179 104 White Blood Count 9.7 Red Blood Count 5.14 Hemoglobin 14.6 Hematocrit 47.5 H Mean Corpuscular Volume 92.4 Mean Corpuscular Hemoglobin 28.4 L Mean Corpuscular Hemoglobin Concent 30.7 L Red Cell Distribution Width 14.0 Platelet Count 270 Mean Platelet Volume 9.7 Neutrophils % 60.9 Lymphocytes % 25.5 Monocytes % 8.5 Eosinophils % 4.1 Basophils % 0.7 Nucleated Red Blood Cells % 0.0 Neutrophils # 5.9 Lymphocytes # 2.5 Monocytes # 0.8 Eosinophils # 0.4 Basophils # 0.1 Nucleated Red Blood Cells # 0.0 Sodium Level 140 Potassium Level 3.5 Chloride Level 91 L Carbon Dioxide Level 46 *H Anion Gap 7 L Blood Urea Nitrogen 25 H Creatinine 1.09 H Glucose Level 107 Calcium Level 9.3 Phosphorus Level 4.2 Magnesium Level 2.0 Test 02/09/17 12:05 Bedside Glucose 126 Medications Medications Current Medications Ondansetron HCl (Zofran Inj) 4 mg Q6H PRN IV NAUSEA AND/OR VOMITING; Start at 04:00 Aspirin (Aspirin) 81 mg DAILY PO Last administered on 02/09/17 09:10; Admin Dose 81 MG; Start 02/05/17 at 09:00 Nitroglycerin (Nitroglycerin (Sl Tab) 0.4 Mg) 1 tab Q5M PRN SL CHEST PAIN; Start 02/05/17 at 04:00 Acetaminophen (Tylenol Tab) 650 mg Q6H PRN PO PAIN LEVEL 1-3 OR FEVER Last administered on 02/07/17 06:09; Admin Dose 650 MG; Start 02/05/17 at 04:00 Famotidine (Pepcid) 20 mg Q12 PO Last administered on 02/09/17 09:10; Admin Dose 20 MG; Start 02/05/17 at 09:00 Enoxaparin Sodium (Lovenox) 40 mg DAILY SC Last administered on 02/09/17 09:11 ; Admin Dose 40 MG; Start 02/05/17 at 09:00 Diagnostic Test (Pha) (Accu-Chek) 1 ea 02 XX ; Start 02/06/17 at 02:00 Insulin Glargine (Lantus) 10 unit QPM SC Last administered on 02/08/17 20:30; Admin Dose 10 UNIT; Start 02/05/17 at 21:00 Miscellaneous Information 1 ea NOTE XX ; Start 02/05/17 at 15:30 Glucose (Glutose) 15 gm Q15M PRN PO DECREASED GLUCOSE; Start 02/05/17 at 15:30 Glucose (Glutose) 22.5 gm Q15M PRN PO DECREASED GLUCOSE; Start 02/05/17 at 15: 30 Dextrose (D50w Syringe) 25 ml Q15M PRN IV DECREASED GLUCOSE; Start 02/05/17 at 15:30 Dextrose (D50w Syringe) 50 ml Q15M PRN IV DECREASED GLUCOSE; Start 02/05/17 at 15:30 Glucagon (Glucagen) 1 mg Q15M PRN IM DECREASED GLUCOSE; Start 02/05/17 at 15:30 Glucose (Glutose) 15 gm Q15M PRN BUCCAL DECREASED GLUCOSE; Start 02/05/17 at 15 :30 Metoprolol Tartrate (Lopressor) 25 mg BID PO Last administered on 02/09/17t 09: 10; Admin Dose 25 MG; Start 02/07/17 at 21:00 MARYANN OLIVER Feb 09, 2017 16:28
[2017-02-09 20:15] VITALS: BP 138/95; RESP 22
[2017-02-09] MEDS: INSULIN GLARGINE [LANtus] 3 ML PEN SC SCH (21:39)
[2017-02-10] VITALS (10 sets, daily range): BP systolic 113–132; BP diastolic 74–85; PULSE 42–74; RESP 18–22
[2017-02-10] MEDS: ACCU-CHEK XX SCH (01:59)
[2017-02-10 05:47] LABS: CALCIUM 8.8 mg/dl (8.4-10.2); CREATININE 1.04 mg/dl (0.44-1.00)
[2017-02-10] MEDS: FUROSEMIDE 40 MG INJ IV SCH ×2 (05:47→18:47)
[2017-02-10] MEDS: INSULIN ASPART [NOVOLOG] 3 ML PEN SC SCH ×4 (08:00→21:00)
[2017-02-10] MEDS: FAMOTIDINE 20 MG TAB PO SCH ×2 (08:11→21:34)
[2017-02-10] MEDS: ASPIRIN 81 MG TAB PO SCH (08:11)
[2017-02-10] MEDS: ENOXAPARIN 40 MG/0.4 ML SYG SC SCH (08:12)
[2017-02-10] MEDS: METOPROLOL 25 MG TAB PO SCH ×2 (08:12→21:35)
[2017-02-10] MEDS ORDERED: POTASSIUM CHLORIDE 250 ML IVPB ONE (10:00)
--- NOTE | 2017-02-10 10:37 | RADRPT ---
PROCEDURE: XR Chest. CLINICAL INDICATION: Pulmonary edema TECHNIQUE: Single frontal view of the chest was obtained COMPARISON: 02/07/2017 FINDINGS: See impression. IMPRESSION: Improved aeration of the left lung base. Persistent cardiomegaly and mild interstitial pulmonary ming ma. Otherwise, no convincing interval change compared to chest radiograph from 3 days prior. RPTAT: EE Physician Lawrence Date Time Electronically viewed and signed by Bre Vale Physician on 02/10/2017 10:37 /
--- NOTE | 2017-02-10 11:57 | PN ---
Date/Time of Note Date/Time of Note DATE: 02/10/17 TIME: 11:54 Assessment/Plan VTE Prophylaxis VTE Prophylaxis Intervention: LMWH Lines/Catheters IV Catheter Type (from Nrs): Saline Lock Urinary Cath still in place: No Assessment/Plan Chief Complaint/Hosp Course 1. Acute hypoxic and hypercapnic respiratory failure secondary to obesity with OHS/PRABHA as well as newly diagnosed systolic heart failure with decompensation- patient continues to desaturate off of supplemental O2 -Based on ABG on arrival patient has chronic hypercapnic respiratory failure with metabolic compensation -Echo shows an EF of 40%, etiology is likely secondary to her obesity and chronic obstructive sleep apnea -Continue diuresis as patient continues to require O2 -Pulmonology following, needs pulmonary evaluation/sleep study, can be done as outpatient -Patient does qualify for home O2 and will require it, watch case polisher to arrange -CXR this a.m. does show some improved aeration of the left lung 2. Acute systolic CHF exacerbation-EF is 40% -Continue Lasix chest x-ray with mild improvement -Metabolic alkalosis is secondary to compensation from hypercapnia 3. Hypertension: Stable -Continue with Coreg, lasix, and MARIA FERNANDA 4. DMII: A1c at 6.9 - basal/bolus insulin - Metformin at discharge 5. Morbid obesity: -Lifestyle changes advised - Physical Security Manager consult - Bariatric surgery would be appropriate Prophylaxis: Lovenox Discharge planning: Patient continues to require O2, watch case polisher to arrange home O2 Problems: Subjective 24 Hr Interval Summary Respiratory: shortness of breath Exam/Review of Systems Vital Signs Vitals Vital Signs Date Time Temp Pulse Resp B/P Pulse Ox O2 Delivery O2 Flow Rate FiO2 02/10/17 09:05 97.7 67 20 132/85 96 02/10/17 05:05 40 02/10/17 02:23 2.0 02/09/17 20:00 Nasal Cannula Intake and Output 02/09/17 02/09/17 02/10/17 15:00 23:00 07:00 Intake Total 1240 ml 480 ml Balance 1240 ml 480 ml Exam Constitutional: alert, oriented Respiratory: clear to auscultation Cardiovascular: regular rate and rhythm Gastrointestinal: soft, No distended Musculoskeletal: nl extremities to inspection Results Result Diagram: 02/09/17 0542 02/10/17 0449 Results 24 hrs Laboratory Tests Test 02/09/17 12:05 02/09/17 17:15 02/09/17 21:36 02/10/17 04:49 Bedside Glucose 126 116 110 Sodium Level 139 Potassium Level 3.0 L Chloride Level 90 L Carbon Dioxide Level 44 *H Anion Gap 8 Blood Urea Nitrogen 29 H Creatinine 1.04 H Glucose Level 114 Calcium Level 8.8 Magnesium Level 2.0 Test 02/10/17 08:04 Bedside Glucose 96 Medications Medications Current Medications Ondansetron HCl (Zofran Inj) 4 mg Q6H PRN IV NAUSEA AND/OR VOMITING; Start at 04:00 Aspirin (Aspirin) 81 mg DAILY PO Last administered on 02/10/17 08:11; Admin Dose 81 MG; Start 02/05/17 at 09:00 Nitroglycerin (Nitroglycerin (Sl Tab) 0.4 Mg) 1 tab Q5M PRN SL CHEST PAIN; Start 02/05/17 at 04:00 Acetaminophen (Tylenol Tab) 650 mg Q6H PRN PO PAIN LEVEL 1-3 OR FEVER Last administered on 02/07/17 06:09; Admin Dose 650 MG; Start 02/05/17 at 04:00 Famotidine (Pepcid) 20 mg Q12 PO Last administered on 02/10/17 08:11; Admin Dose 20 MG; Start 02/05/17 at 09:00 Enoxaparin Sodium (Lovenox) 40 mg DAILY SC Last administered on 02/10/17 08:12 ; Admin Dose 40 MG; Start 02/05/17 at 09:00 Diagnostic Test (Pha) (Accu-Chek) 1 ea 02 XX ; Start 02/06/17 at 02:00 Insulin Glargine (Lantus) 10 unit QPM SC Last administered on 02/09/17 21:39; Admin Dose 10 UNIT; Start 02/05/17 at 21:00 Miscellaneous Information 1 ea NOTE XX ; Start 02/05/17 at 15:30 Glucose (Glutose) 15 gm Q15M PRN PO DECREASED GLUCOSE; Start 02/05/17 at 15:30 Glucose (Glutose) 22.5 gm Q15M PRN PO DECREASED GLUCOSE; Start 02/05/17 at 15: 30 Dextrose (D50w Syringe) 25 ml Q15M PRN IV DECREASED GLUCOSE; Start 02/05/17 at 15:30 Dextrose (D50w Syringe) 50 ml Q15M PRN IV DECREASED GLUCOSE; Start 02/05/17 at 15:30 Glucagon (Glucagen) 1 mg Q15M PRN IM DECREASED GLUCOSE; Start 02/05/17 at 15:30 Glucose (Glutose) 15 gm Q15M PRN BUCCAL DECREASED GLUCOSE; Start 02/05/17 at 15 :30 Metoprolol Tartrate (Lopressor) 25 mg BID PO Last administered on 02/10/17t 08: 12; Admin Dose 25 MG; Start 02/07/17 at 21:00 Potassium Chloride 40 meq 40 meq Q4H PO ; Start 02/10/17 at 10:00; Stop at 14:01 Potassium Chloride (KCl 40 MEQ/250 ML NS) 250 ml @ 62.5 mls/hr ONCE ONCE IVPB ; Start 02/10/17 at 10:00; Stop 02/10/17 at 13:59 MARYANN OLIVER Feb 10, 2017 11:57
--- NOTE | 2017-02-10 12:03 | CONS ---
Date/Time of Note Date/Time of Note DATE: 02/10/17 TIME: 12:02 Assessment/Plan Assessment/Plan Additional Assessment/Plan 1.PVC-occasional - no sustained ectopy - OFF TELE NOw, denies palpitations- better now 2.CHF-? systolic versus diastolic - will await ECHO results once available - stable fluid status WEIGHT LOSS advised 3.HTN - BP in good range, will monitor clinically 4.DM - on meds, keep euglycemic 5.abdominal hernia-anterior - surgical team follows 6. Hypercapneic resp failure-improving - supportive Rx now Consultation Date/Type/Reason Admit Date/Time Feb 05, 2017 at 03:46 Initial Consult Date 02/06/17 Type of Consultation: Pulm Referring Provider: JENISE JENKINS 24 HR Interval Summary Free Text/Dictation NO acute events - BP in good range - no CP now ROS: No fever, no chills, no nausea, no vomiting, no diarrhea/constipation No recent weight changes No chest pain, no PND, no orthopnea No dizziness, blurred vision No thirst, no heat or cold intolerance Exam/Review of Systems Vital Signs Vitals Vital Signs Date Time Temp Pulse Resp B/P Pulse Ox O2 Delivery O2 Flow Rate FiO2 02/10/17 09:05 97.7 67 20 132/85 96 02/10/17 05:05 40 02/10/17 02:23 2.0 02/09/17 20:00 Nasal Cannula Intake and Output 02/09/17 02/09/17 02/10/17 15:00 23:00 07:00 Intake Total 1240 ml 480 ml Balance 1240 ml 480 ml Exam General: WN/WD/NAD, AOx 3 HEENT: Unicetric/atraumatic/EOMI (follow commands) NECK: JVD elevated, no thyromegaly Lymph: no lymphadenopathy HEART: regular with no S3, II/ systolic murmur at apex LUNGS: Coarse sounds ABD: soft, NT, ND, +BS : Intact Neuro: non focal SKIN: chronic changes EXT: trace edema Results Result Diagram: 02/09/17 0542 02/10/17 0449 Results 24 hrs Laboratory Tests Test 02/09/17 12:05 02/09/17 17:15 02/09/17 21:36 02/10/17 04:49 Bedside Glucose 126 116 110 Sodium Level 139 Potassium Level 3.0 L Chloride Level 90 L Carbon Dioxide Level 44 *H Anion Gap 8 Blood Urea Nitrogen 29 H Creatinine 1.04 H Glucose Level 114 Calcium Level 8.8 Magnesium Level 2.0 Test 02/10/17 08:04 Bedside Glucose 96 Medications Medications Current Medications Ondansetron HCl (Zofran Inj) 4 mg Q6H PRN IV NAUSEA AND/OR VOMITING; Start at 04:00 Aspirin (Aspirin) 81 mg DAILY PO Last administered on 02/10/17 08:11; Admin Dose 81 MG; Start 02/05/17 at 09:00 Nitroglycerin (Nitroglycerin (Sl Tab) 0.4 Mg) 1 tab Q5M PRN SL CHEST PAIN; Start 02/05/17 at 04:00 Acetaminophen (Tylenol Tab) 650 mg Q6H PRN PO PAIN LEVEL 1-3 OR FEVER Last administered on 02/07/17 06:09; Admin Dose 650 MG; Start 02/05/17 at 04:00 Famotidine (Pepcid) 20 mg Q12 PO Last administered on 02/10/17 08:11; Admin Dose 20 MG; Start 02/05/17 at 09:00 Enoxaparin Sodium (Lovenox) 40 mg DAILY SC Last administered on 02/10/17 08:12 ; Admin Dose 40 MG; Start 02/05/17 at 09:00 Diagnostic Test (Pha) (Accu-Chek) 1 ea 02 XX ; Start 02/06/17 at 02:00 Insulin Glargine (Lantus) 10 unit QPM SC Last administered on 02/09/17 21:39; Admin Dose 10 UNIT; Start 02/05/17 at 21:00 Miscellaneous Information 1 ea NOTE XX ; Start 02/05/17 at 15:30 Glucose (Glutose) 15 gm Q15M PRN PO DECREASED GLUCOSE; Start 02/05/17 at 15:30 Glucose (Glutose) 22.5 gm Q15M PRN PO DECREASED GLUCOSE; Start 02/05/17 at 15: 30 Dextrose (D50w Syringe) 25 ml Q15M PRN IV DECREASED GLUCOSE; Start 02/05/17 at 15:30 Dextrose (D50w Syringe) 50 ml Q15M PRN IV DECREASED GLUCOSE; Start 02/05/17 at 15:30 Glucagon (Glucagen) 1 mg Q15M PRN IM DECREASED GLUCOSE; Start 02/05/17 at 15:30 Glucose (Glutose) 15 gm Q15M PRN BUCCAL DECREASED GLUCOSE; Start 02/05/17 at 15 :30 Metoprolol Tartrate (Lopressor) 25 mg BID PO Last administered on 02/10/17t 08: 12; Admin Dose 25 MG; Start 02/07/17 at 21:00 Potassium Chloride 40 meq 40 meq Q4H PO ; Start 02/10/17 at 10:00; Stop at 14:01 Potassium Chloride (KCl 40 MEQ/250 ML NS) 250 ml @ 62.5 mls/hr ONCE ONCE IVPB ; Start 02/10/17 at 10:00; Stop 02/10/17 at 13:59 IVÁN SAMSON MD Feb 10, 2017 12:03
[2017-02-10] MEDS: POTASSIUM CHLORIDE (SR) 20 MEQ TAB PO SCH ×2 (12:06→14:26)
[2017-02-10] MEDS: INSULIN GLARGINE [LANtus] 3 ML PEN SC SCH (21:47)
[2017-02-11] MEDS: ACCU-CHEK XX SCH (01:50)
[2017-02-11 02:00] VITALS: BP 132/66; RESP 20
[2017-02-11] MEDS: FUROSEMIDE 40 MG INJ IV SCH (05:37)
[2017-02-11] MEDS: INSULIN ASPART [NOVOLOG] 3 ML PEN SC SCH ×2 (08:00→12:00)
[2017-02-11] MEDS: ENOXAPARIN 40 MG/0.4 ML SYG SC SCH (08:05)
[2017-02-11] MEDS: FAMOTIDINE 20 MG TAB PO SCH (08:08)
[2017-02-11] MEDS: METOPROLOL 25 MG TAB PO SCH (08:08)
[2017-02-11 08:38] VITALS: BP 106/60; RESP 19
[2017-02-11] MEDS: ASPIRIN 81 MG TAB PO SCH (11:18)
[2017-02-11] MEDS ORDERED: FURO40TA4 PO (14:34)
[2017-02-11] MEDS ORDERED: METO-448 PO (14:34)
[2017-02-11] MEDS ORDERED: METF500T4 PO (14:34)
--- NOTE | 2017-02-11 14:35 | PDOCDIS ---
Discharge Instructions CONDITION Patient Condition: Good HOME CARE INSTRUCTIONS: Diet Instructions: Reduced CalorieSpecial Diet: carb controlled ACTIVITY: Activity Restrictions: No Restrictions FOLLOW UP/APPOINTMENTS Follow-up Plan F/U WITH YOUR PCP IN 1-2 WEEKS MARYANN OLIVER Feb 11, 2017 14:35
--- NOTE | 2017-02-11 19:14 | DS ---
Date/Time of Note Date/Time of Note DATE: 02/11/17 TIME: 19:07 Discharge Summary Admission/Discharge Info Admit Date/Time Feb 05, 2017 at 03:46 Discharge Date/Time Feb 11, 2017 at 16:30 Discharge Diagnosis 1. Acute hypoxic and hypercapnic respiratory failure secondary to obesity with OHS/PRABHA as well as newly diagnosed systolic heart failure with decompensation- improved -Patient no longer requiring supplemental O2 -Based on ABG on arrival patient has chronic hypercapnic respiratory failure with metabolic compensation -Echo shows an EF of 40%, etiology is likely secondary to her obesity and chronic obstructive sleep apnea -DC with Lasix and metoprolol -Pulmonology consultation was appreciated, needs pulmonary evaluation/sleep study, can be done as outpatient 2. Acute systolic CHF exacerbation-EF is 40% -DC with Lasix and metoprolol 3. Hypertension: Stable -DC with metoprolol 4. DMII: A1c at 6.9 -DC with metformin 5. Morbid obesity: -Lifestyle changes advised -Bariatric surgery would be appropriate Patient Condition: Good Hospital Course Patient is a 47-year-old female with a past medical history of obesity otherwise no known medical history the patient presents with shortness of breath she is found to have hypoxic and hypercapnic respiratory failure with pulmonary edema. ABG on arrival did suggest chronic hypercapnic respiratory failure with metabolic compensation, patient was found to have heart failure with an EF of 40%, this was newly diagnosed. Patient was diuresed and was seen by pulmonology, patient does need a sleep study as an outpatient. Patient required several days of diuresis and on the day of discharge patient required no further supplemental O2. Patient was advised that she needs to lose weight as her obesity is causing sleep apnea/hypoventilation syndrome which in turn is causing heart failure. Patient understand the need to lose weight. On day of discharge patient was able to ambulate without any supplemental O2, her vitals, labs and physical exam are stable she no further acute complaints and questions were answered. Home Meds Active Scripts Furosemide* (Furosemide*) 40 Mg Tablet, 40 MG PO DAILY, #60 TAB Prov:MARYANN OLIVER 02/11/17 Metformin* (Glucophage*) 500 Mg Tab, 500 MG PO WITH BREAKFAST DINNE, #60 TAB 1 Refill Prov:MARYANN OLIVER 02/11/17 Metoprolol Tartrate* (Lopressor*) 25 Mg Tab, 25 MG PO BID, #60 TAB Prov:MARYANN OLIVER 02/11/17 Discontinued Reported Medications Hydrochlorothiazide* (Hydrochlorothiazide*) 25 Mg Tab, 25 MG PO DAILY, TAB 01/07/15 Metoprolol Tartrate* (Lopressor*) 50 Mg Tab, 50 MG PO DAILY, TAB 01/07/15 Follow-up Plan F/U WITH YOUR PCP IN 1-2 WEEKS Primary Care Provider Care Physician No Primary Time spent on discharge: > 30 minutes MARYANN OLIVER Feb 11, 2017 19:14
== END 2017-02-11 16:30 | disposition home or self-care (01) | DRG 291 ==
LOC: E/R 00:31 → TEL 03:46 → PP2 02-08 16:10
PROVIDERS: ADMIT Family Medicine; ATTEND Family Medicine
DX: I11.0 Hypertensive heart disease with heart failure (principal); J96.21 Acute and chronic respiratory failure with hypoxia; E66.2 Morbid (severe) obesity with alveolar hypoventilation; J96.12 Chronic respiratory failure with hypercapnia; Z68.44 Body mass index [BMI] 60.0-69.9, adult; K46.9 Unspecified abdominal hernia without obstruction or gangrene; E11.9 Type 2 diabetes mellitus without complications; Z79.84 Long term (current) use of oral hypoglycemic drugs; I50.21 Acute systolic (congestive) heart failure; R00.1 Bradycardia, unspecified
CPT/HCPCS: 36415; 36600; 71010; 71275; 80048; 80053; 80061; 82550; 82553; 82803; 82962; 83036; 83735; 83880; 84100; 84443; 84484; 84703; 85025; 85378; 85610; 85730; 90686; 93005; 93306; 93970; 94660; 96374; J1940; J1650; J1815; J3480; Q9967

== ENCOUNTER → 2018-04-03 | Outpatient (CLI) | END | disposition home or self-care (01) ==

== ENCOUNTER → 2018-04-11 | Outpatient (CLI) | END | disposition home or self-care (01) ==